=== PATIENT | female | born 1975 | race Caucasian/White ===

== ENCOUNTER 2020-08-23 16:31 | Outpatient (REF) | payer SELFPAY | END 2020-08-23 16:32 | disposition home or self-care (01) | LOC: HO.HOSX 16:31 | PROVIDERS: Visit Provider Orthopaedic Surgery | DX: Z13.89 Encounter for screening for other disorder (principal) ==

== ENCOUNTER 2020-08-24 09:11 | Outpatient (REF) | payer OTHER, SELFPAY | END 2020-08-24 09:12 | disposition home or self-care (01) | LOC: HO.HOSX 09:11 | PROVIDERS: PCP Internal Medicine; Visit Provider Orthopaedic Surgery | DX: M65.4 Radial styloid tenosynovitis [de Quervain] (principal) | CPT/HCPCS: 20550; 99202; J1100 ==

== ENCOUNTER → 2020-09-14 10:17 | Outpatient (BNVA) | payer OTHER, SELFPAY | PROVIDERS: PCP Internal Medicine; Visit Provider Orthopaedic Surgery | DX: M65.4 Radial styloid tenosynovitis [de Quervain] (principal) | CPT/HCPCS: 99212 ==

== ENCOUNTER → 2020-10-12 09:08 | Outpatient (BNVA) | payer OTHER, SELFPAY | PROVIDERS: Visit Provider Orthopaedic Surgery | DX: M65.4 Radial styloid tenosynovitis [de Quervain] (principal) | CPT/HCPCS: 99212 ==

== ENCOUNTER 2020-10-27 12:48 | Day surgery (SDC) | payer OTHER, SELFPAY ==
[2020-10-27 12:55] VITALS: BMI 30.4
[2020-10-27 12:57] VITALS: BP 153/99; PULSE 90; RESP 18; TEMP 36.4; O2SAT 98
--- NOTE | 2020-10-27 14:14 | MHC.SHP ---
Pre-Procedural Eval Section B Chief Complaint: tenosynovitis Allergies: Allergies Allergy/AdvReac Type Severity Reaction Status Date / Time No Known Allergies Allergy Verified 10/12/20 09:17 Plan I have reviewed the history and physical and performed a pertinent physical examination on my patient. No changes have occurred unless specified.
--- NOTE | 2020-10-27 14:14 | W.PM.OPN ---
Operative Note Operative Note Date of Service: 10/27/20 Narrative: Operative Note Preop diagnosis: 1. Right DeQuervain's tenosynovitis Postop diagnosis: 1. Right DeQuervain's tenosynovitis Procedure: 1. Right 1st dorsal compartment release 2. Right abductor pollicis longus tendon tenosynovectomy Surgeon: Bella Nix MD Anesthesia: local block using 1% lidocaine with epinephrine Findings: Thickened 1st dorsal compartment. EPB tendon in a separate sheath from APL Inflamed Milena synovial about APL tendon EBL: Less than 5 mL Tourniquet time: None Specimens: None Complications: None Disposition: Brought to recovery room in stable condition Plan: Follow-up for 7-10 days for wound check and suture removal Indications: The patient is 45 years old, with right DeQuervain's tenosynovitis that has been unresponsive to nonoperative management. The risks and benefits of operative treatment including but not limited to risk of damage to blood vessels, nerves, tendons, infection, persistent pain, persistent symptoms, recurrence or possible need for additional surgery were discussed with the patient and the patient wishes to proceed with surgery. Procedure: Once consent was obtained a local block was performed in the preop area using a combination of 1% lidocaine with epinephrine. The patient was then brought back to the operating suite and placed on the operative table in supine position. A tourniquet was applied to the proximal aspect of the right upper extremity and the limb was prepped and draped in a standard surgical fashion. Once assured that we had a good block, a 1.5 cm longitudinal incision was made centered over the 1st dorsal compartment as it passed over the radial styloid of the right wrist. The incision was made through the skin to the subcutaneous tissues using a #15 blade. Careful dissection was made down to the level of the 1st dorsal compartment using tenotomy scissors, with care being taken to protect the nearby branches of the superficial radial nerve. Once the 1st dorsal compartment was exposed, A longitudinal incision was made in the 1st dorsal compartment 1st using a #15 blade, then using tenotomy scissors under direct visualization. The 1st dorsal compartment was noted to be thickened. She also had some inflamed tenosynovium about the abductor pollicis longus tendon. Carefully performed a T no sign of ectomy excising the inflamed tenosynovium from about APL tendon. This was done using tenotomy scissors. Extensor pollicis brevis tendon was noted to be in a separate sheath. I then released the extensor pollicis brevis tendon by making a longitudinal incision in that sheath using tenotomy scissors. Following our release, we saw smooth gliding abductor pollicis longus and extensor pollicis brevis tendons. No subluxation of the tendons from the groove was seen with passive wrist flexion and extension. Once satisfied with our 1st dorsal compartment release the wound was copiously irrigated with normal saline and hemostasis was obtained with a brief period of local pressure. The subcutaneous layer was closed with some 4-0 Vicryl suture, and the skin edges were reapproximated with some 5.0 nylon suture material. A sterile dressing was applied. The patient appears to have tolerated the procedure well and with no complications. All digits were well vascularized at the conclusion of the case.
[2020-10-27 15:52] VITALS: BP 145/97; PULSE 75; RESP 18; TEMP 37.1; O2SAT 97
== END 2020-10-27 16:02 ==
LOC: HO.SSS 12:48
PROVIDERS: PCP Internal Medicine; Visit Provider Orthopaedic Surgery
PROC: (CPT 25000; principal; 2020-10-27 13:10)
DX: M65.4 Radial styloid tenosynovitis [de Quervain] (principal); F17.210 Nicotine dependence, cigarettes, uncomplicated
CPT/HCPCS: 25000

== ENCOUNTER → 2020-11-07 09:09 | Outpatient (BNVA) | payer OTHER, SELFPAY | PROVIDERS: PCP Internal Medicine; Visit Provider Physician Assistant | DX: M65.4 Radial styloid tenosynovitis [de Quervain] (principal) | CPT/HCPCS: 99212 ==

== ENCOUNTER → 2020-11-16 09:26 | Outpatient (BNVA) | payer OTHER, SELFPAY | PROVIDERS: Visit Provider Orthopaedic Surgery | DX: M65.4 Radial styloid tenosynovitis [de Quervain] (principal) | CPT/HCPCS: 99212 ==

== ENCOUNTER 2022-12-26 14:35 | Outpatient (REF) | payer OTHER, SELFPAY ==
[2022-12-26 19:28] LABS: Alanine Aminotransferase 8 U/L (0-31); Albumin Level 4.2 g/dL (3.5-5.0); Alkaline Phosphatase 68 U/L (39-117); Anion Gap 12 (12-20); Aspartate Amino Transferase 12 U/L (5-31); Bilirubin Total 0.5 mg/dL (0.0-1.0); Blood Urea Nitrogen 5 mg/dL (9-16); Carbon Dioxide 29 mmol/L (22-29); Chloride 108 mmol/L (96-108); Estimated Glomerular Filt Rate > 60; Glucose Random 90 mg/dL (60-115); Magnesium 2.3 mg/dL (1.6-2.6); Potassium 4.3 mmol/L (3.3-5.1); Sodium 145 mmol/L (135-145); Total Protein 6.5 g/dL (6.5-8.0)
== END 2022-12-26 14:36 | disposition home or self-care (01) ==
LOC: HO.MANLDS 14:35
PROVIDERS: Visit Provider Internal Medicine
DX: G24.5 Blepharospasm (principal)
CPT/HCPCS: 36415; 80053; 83735

== ENCOUNTER 2023-02-08 09:20 | Outpatient (REF) | payer OTHER, SELFPAY ==
--- NOTE | ~2023-02-08 | MR_ITS ---
EXAMINATION: MR BRAIN WITHOUT AND WITH CONTRAST CLINICAL INFORMATION: 47-year-old with right-sided facial twitching. COMPARISON: None available. TECHNIQUE: Multiplanar, multisequence MRI of the brain was obtained before and after the intravenous administration of 7 mL Gadavist. FINDINGS: Brain Volume: Within normal limits within the limitations of qualitative assessment. Structural: Incidental 5 mm benign pineal cyst. Just cephalad to this and slightly to the right of midline, there is a 7 mm nonenhancing cystic structure in the cistern of the vellum interpositum which may reflect a small arachnoid cyst, best visualized on image 12 of series 5. Brain and Meninges: DWI sequence demonstrates no restricted diffusion to suggest acute or subacute cerebral ischemia. A few scattered subcentimeter foci of FLAIR/T2 signal hyperintensity are seen in the subcortical white matter of the right frontal lobe and deep parietal white matter on the left with no abnormal enhancement which are nonspecific findings. Otherwise, the brain parenchyma is normal in signal intensity. Gradient refocused imaging demonstrates no abnormal susceptibility-weighted signal loss to suggest hemorrhage, hemosiderin staining or abnormal mineralization. No intracranial mass lesions, extra-axial fluid collections, pathologic intracranial enhancement, significant space-occupying process or mass effect is identified. Ventricles and Subarachnoid Spaces: The ventricular system and subarachnoid spaces are otherwise within normal range; there is no hydrocephalus. Orbital Structures: The visualized orbital structures are grossly unremarkable within the limitations of the study. Vascular: Signal voids are noted in the visualized major intracranial vessels. Osseous Structures, Sinuses/Mastoids, Extracranial Soft Tissues: Unremarkable MR/MR head/brain wo/w con IMPRESSION: 1. A few scattered nonspecific nonenhancing white matter T2 hyperintensities in the cerebral hemispheres are noted. Followup as per clinical indications. 2. No enhancing intracranial mass lesion, pathologic enhancement, significant mass effect, hemorrhage, or hydrocephalus. 3. Incidental 5 mm benign pineal cyst and probable small, subcentimeter arachnoid cyst in the cistern of the vellum interpositum.
== END 2023-02-08 09:21 | disposition home or self-care (01) ==
LOC: HO.MRI 09:20
PROVIDERS: PCP Internal Medicine; Visit Provider Internal Medicine
DX: G24.5 Blepharospasm (principal)
CPT/HCPCS: 70553; A9585

== ENCOUNTER 2023-09-18 09:25 | Outpatient (REF) | payer OTHER, SELFPAY ==
[2023-09-19 18:43] LABS: Ceruloplasmin 27 mg/dL (18-53)
[2023-09-21 16:29] LABS: Copper, plasma 111 mcg/dL (70-175)
== END 2023-09-18 09:26 | disposition home or self-care (01) ==
LOC: HO.LAB 09:25
PROVIDERS: PCP Internal Medicine; Visit Provider Psychiatry & Neurology Neurology
DX: G24.4 Idiopathic orofacial dystonia (principal)
CPT/HCPCS: 36415; 82390; 82525

== ENCOUNTER 2023-09-23 | Outpatient (REF) | payer OTHER, SELFPAY | END 2023-09-23 00:01 | disposition home or self-care (01) | LOC: HO.LNP | PROVIDERS: Visit Provider Psychiatry & Neurology Neurology | DX: Z13.89 Encounter for screening for other disorder (principal) ==

== ENCOUNTER 2025-02-18 07:41 | Emergency (ER) | payer MEDICAID, SELFPAY ==
--- NOTE | ~2025-02-18 | CT_ITS ---
EXAMINATION: CT ABDOMEN PELVIS WITH IV CONTRAST HISTORY: n/v COMPARISON: There are no prior studies for available comparison. TECHNIQUE: CT scan of the abdomen and pelvis was performed following administration of 85 mL Omnipaque 350 using standard departmental protocol. Coronal and sagittal reformatted images were generated and reviewed. Oral contrast material was not administered at the request of the referring physician. This CT exam was performed with one or more of the following dose reduction techniques: automated exposure control, adjustment of the mA and/or kV according to patient size, use of iterative reconstruction technique. DLP: 378 mGy-cm FINDINGS: LOWER CHEST: The visualized lung bases are clear. There is no pleural effusion. CARDIOVASCULATURE: The heart is normal in size. There is no pericardial effusion. LIVER: The liver is normal in size and contour. No liver mass is identified. The hepatic and portal veins are patent. GALLBLADDER / BILE DUCTS: The gallbladder is unremarkable. There is no intra or extrahepatic biliary ductal dilatation. SPLEEN: The spleen is normal in size. No focal splenic lesion is identified. PANCREAS: The pancreas is unremarkable in appearance. ADRENAL GLANDS: Within normal limits. KIDNEYS/RETROPERITONEUM: No renal calculi are identified. There is no hydronephrosis. No renal masses are identified. LYMPH NODES: No abdominal or pelvic lymphadenopathy. VASCULATURE: The abdominal aorta is normal in caliber. MESENTERY/PERITONEUM: No free fluid. No masses. There is no free intraperitoneal gas. STOMACH: There is a small hiatal hernia. The remainder of the stomach is collapsed. SMALL BOWEL: The small bowel is normal in caliber. COLON: The colon is unremarkable. APPENDIX: Normal. URINARY BLADDER/PELVIC ORGANS: The urinary bladder is markedly distended, but otherwise unremarkable in appearance. The uterus is unremarkable. BONES / SOFT TISSUES: No suspicious bony or soft tissue abnormalities. CT/CT abdomen pelvis w IV con IMPRESSION: 1. Small hiatal hernia. 2. Markedly distended urinary bladder. Electronically signed by: Patrick Moncada MD 02/18/2025 09:55 AM EDT
[2025-02-18 07:50] VITALS: BP 169/96; BP 172/98; PULSE 73; PULSE 78; RESP 16; O2SAT 99; BMI 22.3
--- NOTE | 2025-02-18 08:10 | ED_ITS ---
HPI - Abdominal Pain General Chief Complaint: Abdominal Pain Stated Complaint: ABD PAIN, VOMITING PER EMS Time Seen by Provider: 02/18/25 07:49 History of Present Illness HPI narrative: Patient is a 49-year-old female presents today with having extreme nausea vomiting. The symptoms started just prior to arrival. Patient use marijuana on a daily basis. Denies any other recreational drug use. History of having a tubal ligation many years ago. Unable to tolerate p.o.. Extreme nausea. Had a history of nausea vomiting in the past. Related Data Home Medications ?Medication ?Instructions ?Recorded ?Confirmed bupropion HCl 150 mg tablet,12 hr 150 mg PO DAILY 02/06 sustained-release sertraline 100 mg tablet 100 mg PO DAILY 08/24/20 Previous Rx's ?Medication ?Instructions ?Recorded hydrocodone 5 mg-acetaminophen 325 1 tab PO Q4-6H PRN pain #5 tabs 10/27/20 mg tablet cephalexin 500 mg capsule 500 mg PO Q8H 7 days #21 cap s 02/18/25 ondansetron 4 mg disintegrating 4 mg PO TID PRN nausea and 02/18/25 tablet vomiting 5 days #10 tabs Allergies Allergy/AdvReac Type Severity Reaction Status Date / Time No Known Allergies Allergy Verified 02/18/25 07:54 Review of Systems Review of Systems Positive nausea vomiting no diarrhea PMFSH Past Medical History Attestation statement: The following information was validated with the patient. Medical History Anxiety Depression Family History Family History Mother No problems noted. Father No problems noted. 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 Extreme nausea vomiting Eyes: Pupils equal, round and reactive to light. ENT: Pharynx normal. Neck: Normal inspection. Neck supple. No lymph nodes noted. No crepitus CVS: Normal heart rate and rhythm. Pulses normal. Normal S1 and S2 Respiratory: No respiratory distress. Breath sounds normal. No Wheezing. No rales Abdomen: Soft and nontender. No rigidity. No distention. good BS x4 Skin: Skin warm and dry. Normal skin color. Normal skin turgor. Extremities: No lower extremity edema. Neurovascular intact to all extremities. No Lacerations. No Rash Neuro: No motor deficit. No sensory deficit. Moving all extermities. No slurred speech Medical Decision Making Medical Decision Making [facility] Narrative: Patient's electrolytes showed a potassium of 2.8 with a normal magnesium. Hydrated patient with oral potassium and IV potassium. Has a history of marijuana use. CC of vomiting. CT scan of the abdomen showed no obstruction no abscess no perforation it did show an enlarged bladder patient refused a bladder scan. His her urine was positive for infection. Will give antibiotics. Patient refused any further study. Including repeat electrolytes. Understands the risk of retention understand the risk of infection. It is leaving against medical advice. Differential Diagnosis Differential Diagnoses: The differential diagnosis associated with the presentation includes Small-bowel obstruction, UTI, appendicitis Admission/Observation Consideration of admission/observation: Escalation of care including admission/observation considered Lab Data [facility] Lab Attestation statement: I reviewed the patient's lab results. 02/18/25 08:08 02/18/25 08:08 Labs: Lab Results 02/18/25 02/18/25 Range/Units 08:08 09:39 WBC 8.6 (4.8-10.8) X10*3/uL RBC 4.86 (4.20-5.50) X10*6/uL Hgb 13.3 (12.0-16.0) g/dl Hct 39.1 (37.0-47.0) % MCV 80.5 (80.0-98.0) fL MCH 27.4 (27.0-33.0) pg MCHC 34.0 (31.0-35.0) g/dl RDW 13.0 (11.0-16.0) % Plt Count 260 (160-400) X10*3/uL MPV 10.4 (9.4-12.3) fL Immature Gran % (Auto) 0.2 (0.0-0.4) % Neut % (Auto) 68.6 (45-73) % Lymph % (Auto) 25.4 (20-40) % Powell % (Auto) 4.7 (2-11) % Eos % (Auto) 0.5 (0-4) % Baso % (Auto) 0.6 (0-2) % Lymph # (Auto) 2.2 (1.2-4.9) X10*3/uL Powell # (Auto) 0.4 (0.1-1.2) X10*3/uL Eos # (Auto) 0.0 (0.0-0.4) X10*3/uL Baso # (Auto) 0.1 (0.0-0.2) X10*3/uL Abs Immat Gran (auto) 0.02 (0.00-0.03) X10*3/uL Absolute Neuts (auto) 5.9 (2.0-8.3) x10*3/uL Absolute Nucleated RBC 0.000 (0.0-0.012) X10*3/uL Nucleated RBC % (auto) 0.0 (0.0-0.2) /100WBC Sodium 139 (135-145) mmol/L Potassium 2.8 L* (3.3-5.1) mmol/L Chloride 104 (96-108) mmol/L Carbon Dioxide 20 L (22-29) mmol/L Anion Gap 18 (12-20) BUN 6 L (9-16) mg/dL Creatinine 0.85 (0.5-1.4) mg/dL Estim Creat Clear Calc 69.9 Estimated GFR > 60 Random Glucose 176 H (60-115) mg/dL Calcium 9.2 (8.4-10.2) mg/dL Magnesium 2.0 (1.6-2.6) mg/dL Total Bilirubin 0.5 (0.0-1.0) mg/dL AST 21 (5-31) U/L ALT 9 (0-31) U/L Alkaline Phosphatase 52 (39-117) U/L Total Protein 7.0 (6.5-8.0) g/dL Albumin 4.7 (3.5-5.0) g/dL Lipase 22 (8-78) U/L Beta HCG, Quant 6 mIU/mL Urine Color Yellow Urine Appearance Clear Urine pH 8.0 (5.0-9.0) Ur Specific [place] <= 1.005 (1.005-1.025) Urine Protein Negative (Neg-Trace) mg/dL Urine Glucose (UA) Negative (Negative) mg/dL Urine Ketones Trace (Negative) mg/dL Urine Blood Negative (Negative) Urine Nitrite Positive H (Negative) Ur Leukocyte Esterase Small (1+) H (Negative) Urine RBC 0-2 (0-2) /HPF Urine WBC 0-5 (0-5) /HPF Ur Squamous Epith Cells 6-10 (0-2) /HPF Urine Bacteria 3+ (None Seen) Hyaline Casts 0-2 (0-2) /LPF Ethyl Alcohol 12 mg/dL Independent Interpretation I performed an independent interpretation of an: CT Scan (No overt obstruction noted) Radiology Impression Discussion of test interpretation with radiology: I have reviewed the radiologist's reading. External Record Review External record reviewed: Office record Social Determinants Patient?s care significantly limited by Social Determinants of Health including: Alcoholism and drug addiction in family and Problems related to primary support group Medications Administered Discontinued Medications Generic Name Dose Route Start Last Admin Trade Name Freq PRN Reason Stop Dose Admin Diphenhydramine HCl 50 mg 02/18/25 08:07 02/18/25 08:30 Diphenhydramine Hcl 50 Mg/Ml Vial IVPUSH 02/18/25 08:08 50 mg ONCE ONE Administration Droperidol 0.625 mg 02/18/25 08:08 02/18/25 08:30 Droperidol 5 Mg/2 Ml Vial IVPUSH 02/18/25 08:09 0.625 mg ONCE ONE Administration Sodium Chloride 1,000 mls @ 999 mls/hr 02/18/25 08:15 02/18/25 11:11 Ns IV 02/18/25 09:15 Infused .Q1H1M LOU Infusion Sodium Chloride 1,000 mls @ 999 mls/hr 02/18/25 08:15 07/03/25 10:07 Ns IV 02/18/25 09:15 Infused .Q1H1M LOU Infusion Potassium Chloride 10 meq in 100 mls @ 100 mls/hr 02/18/25 08:45 02/18/25 12:16 Potassium Chloride/H20 IV 02/18/25 12:44 Not Given Q1H LOU Iohexol 100 ml 02/18/25 09:26 02/18/25 09:26 Iohexol 350 Mg/Ml 100 Ml Infus..Btl IV 02/18/25 09:27 85 ml ONCE ONE Administration Potassium Chloride 40 meq 02/18/25 08:42 02/18/25 08:57 Potassium Chloride Packet 20 Meq Packet PO 02/18/25 08:43 40 meq ONCE ONE Administration Discharge Plan Discharge Clinical Impression: Nausea & vomiting Patient Disposition: Left Against Medical Advice Instructions: Acute Nausea and Vomiting (DC) Additional Instructions: Bladder is full on the CT scan. You are leaving against medical advice. Please come back if you can not urinate Prescriptions: New cephalexin 500 mg capsule 500 mg PO Q8H 7 Days Qty: 21 0RF ondansetron 4 mg tablet,disintegrating 4 mg PO TID PRN (Reason: nausea and vomiting) 5 Days Qty: 10 0RF No Action hydrocodone-acetaminophen 5-325 mg tablet 1 tab PO Q4-6H PRN (Reason: pain) Qty: 5 0RF Referrals: Baldomero Edwards MD [Primary Care Provider, Medical] - 3 days Stand Alone Forms: Against Medical Advice Print Language: [place]
[2025-02-18 08:12] LABS: MANUAL DIFF FLAG NO
[2025-02-18 08:17] LABS: Hematocrit 39.1 % (37.0-47.0); Hemoglobin 13.3 g/dl (12.0-16.0); Imm Gran Abs Auto 0.02 X10*3/uL (0.00-0.03); Imm Gran Pct Auto 0.2 % (0.0-0.4); Lymphocytes Absolute Auto 2.2 X10*3/uL (1.2-4.9); Mean Corpuscular HGB Conc 34.0 g/dl (31.0-35.0); Mean Corpuscular Hemoglobin 27.4 pg (27.0-33.0); Mean Corpuscular Volume 80.5 fL (80.0-98.0); NRBC Abs Auto 0.000 X10*3/uL (0.0-0.012); NRBC Pct Auto 0.0 /100WBC (0.0-0.2); Platelet Count 260 X10*3/uL (160-400); Red Blood Count 4.86 X10*6/uL (4.20-5.50); White Blood Count 8.6 X10*3/uL (4.8-10.8)
[2025-02-18 08:42] LABS: Alanine Aminotransferase 9 U/L (0-31); Albumin Level 4.7 g/dL (3.5-5.0); Alkaline Phosphatase 52 U/L (39-117); Anion Gap 18 (12-20); Aspartate Amino Transferase 21 U/L (5-31); Blood Urea Nitrogen 6 mg/dL (9-16); Calcium 9.2 mg/dL (8.4-10.2); Carbon Dioxide 20 mmol/L (22-29); Chloride 104 mmol/L (96-108); Creatinine Clr Calc Pharmacy 69.9; Estimated Glomerular Filt Rate > 60; Lipase 22 U/L (8-78); Magnesium 2.0 mg/dL (1.6-2.6); Potassium 2.8 mmol/L (3.3-5.1); Sodium 139 mmol/L (135-145); Total Protein 7.0 g/dL (6.5-8.0)
[2025-02-18] MEDS: Potassium Chloride Packet 20 MEQ PACKET 40 MEQ PO (08:57)
[2025-02-18] MEDS: Potassium Chloride/H20 10 MEQ/100 ML PIGGYBACK 100 MEQ IV ×3 (08:57→11:10)
[2025-02-18 08:58] VITALS: BP 143/67; PULSE 89; RESP 18; TEMP 36.4; O2SAT 99
[2025-02-18] MEDS: iohexoL 350 MG/ML 100 ML INFUS..BTL IV (09:26)
[2025-02-18 09:50] LABS: Appearance Urine Clear; Glucose Urine UA Negative (Negative); PH 8.0 (5.0-9.0); Specific Gravity - Urine <= 1.005 (1.005-1.025); UMIC TRIGGER UACC YES
--- OUTSIDE RECORDS SUMMARY | 2025-02-18 10:05 | XMS_ITS | Clinical Summary ---
Author Organization [employer] Address [address] [place] [address] Care Team Providers Care Room Worker Name Role Phone Unavailable Primary Care Provider Unavailabl e Allergies No known active allergies Medications buPROPion SR (Wellbutrin SR) 100 MG 12 hr tablet Orally Active sertraline (Zoloft) 100 MG tablet Take 100 mg by mouth in the morning. 08/28/2022 Active Active Problems No known active problems Social History Tobacco Use Types Packs/Day Years Used Date Smoking Tobacco: Every Day Cigarettes Smokeless Tobacco: Never Tobacco Cessation:Ready to Q uit: Not Asked; Counseling Given: Not Answered Comments Unknown Sex and Gender Information Value Date Recorded Sex Assigned at Female 06/18/2022 10:23 AM EDT Legal Sex Female 10:23 AM EDT Gender Identity Female 06/18/2022 10:23 AM EDT Sexual Orientation Straight 06/18/2022 10 :23 AM EDT Last Filed Vital Signs Vital Sign Reading Time Taken Comments Blood Pressure 140/96 10/03/2022 11:19 AM EST Pulse 85 10/03/2022 11:19 AM EST Temperature - - Respiratory Rate - - Oxygen Saturation - - Inhaled Oxygen Concentration - - Weight - - Height - - Body Mass Index - - Plan of Treatment Health Maintenance Due Date Last Done Comments CT Colonography 1976 Colonoscopy 1976 Colorectal Cancer Screening 1976 Dental X-Ray: Full Mouth 1976 Depression Screening 1976 FIT DNA/Cologuard 1976 FIT 1976 FOBT 1976 HIV Screening 1976 SDOH Screening 1976 Sigmoidoscopy 1976 Disability Screening 1976 Alcohol/Substance Use Screening 1988 Family Planning (PISQ) 1991 Hepatitis C Screening 1994 Hepatitis B Vaccines (1 of 3 - 19+ 3-dose series) 1995 Pneumococcal Vaccine: Pediatrics (0 to 5 Years) and At-Risk Patients (6 to 49) Years (1 of 2 - PCV) 1995 Pap Smear 1997 Cervical Cancer Screening 2006 HPV/Cotest 2006 DTaP/Tdap/Td Vaccines (1 - Tdap) 03/02/2017 03/01/2017, 02/24/2017 Mammogram 11/11/2020 11/11/2018 Dental Oral Exam 03/20/2023 09/19/2022 Dental Prophylaxis 03/20/2023 09/19/2022 Dental X-Ray: Bitewings 09/20/2023 09/19/2022 COVID-19 Vaccine (1 - 2023-2 5 season) 2024 Tobacco Screening 05/08/2024 05/08/2023 Influenza Vaccine (Season Ended) 2025 Zoster Vaccines (1 of 2) 2026 RSV Patients and Patients Aged 60 years or older (1 - 1-dose 75+ series) 2051 HIB Vaccines Aged Out No longer eligi ble based on patient's age to complete this topic HPV Vaccines Aged Out No longer eligi ble based on patient's age to complete this topic Hepatitis A Vaccines Aged Out No long er eligible based on patient's age to complete this topic IPV Vaccines Aged Out No longer eligi ble based on patient's age to complete this topic Meningococcal B Vaccine Aged Out No l onger eligible based on patient's age to complete this topic Meningococcal Vaccine Aged Out No [place] eligible based on patient's age to complete this topic RSV under 20 months Aged Out No longe r eligible based on patient's age to complete this topic Rotavirus Vaccines Aged Out No longer eligible based on patient's age to complete this topic Procedures Procedure Name Priority Date/Time Associated Diagnosis Comments PROPHYLAXIS - ADULT Routine 09/19/2022 9 :00 AM EST Encounter for dental examination BITEWINGS - 4 RADIOGRAPHIC IMAGES Routine 09/19/2022 9:00 AM EST Encounter for dental examination PERIODIC ORAL EVALUATION - ESTABLISHED PATIENT Routine 09/19/2022 8:45 AM EST from Last 3 Months or Most Recently Relevant to Health Maintenance Insurance DENTAL - [facility] PARTIAL (MEDICAID)
--- OUTSIDE RECORDS SUMMARY | 2025-02-18 10:05 | XMS_ITS | Data Portability ---
Author Organization [facility], Telehealth Patient Home Address [address] [place] [address] Assessment Encounter Date Assessment Date Assessment LastModified by Organization Details LastModified Time 08/02/2021 08/02/2021 [id number] [place] [id number] (PHYSICIAN NEONATOLOGY) : RYAN LOW MUST MEET 2 OF 3 ELEMENTS: PROBLEMS, DATA OR RISK ELEMENT 1: PROBLEMS ADDRESSED (LOW): 2 OR MORE SELF-LIMITED OR MINOR PROBLEMS OR 1 STABLE CHRONIC ILLNESS OR 1 ACUTE UNCOMPLICATED ILLNESS OR INJURY ELEMENT 2: DATA TO BE REVISED AND ANALYZED (LOW) MUST MEET 1 OF 2 CATEGORIES: CATEGORY 1. REVIEW OF PRIOR EXTERNAL NOTES/RESULTS, ORDERING OF TEST(S) CATEGORY 2. ASSESSMENT REQUIRING INDEPENDENT HISTORIAN(S) INCLUDE WHO THE HISTORIAN IS AND RELATION TO PT AND WHY PT IS UNABLE TO GIVE COMPLETE HISTORY ELEMENT 3: RISK (LOW) RISK OF COMPLICATIONS AND/OR MORBIDITY OR MORTALITY OF PATIENT MANAGEMENT PROVIDER MUST THOROUGHLY DOCUMENT ALL OF THE ELEMENTS COVERED Not available 08/02/2021 12:44:05 02/26/2023 02/26/2023 [id number] [place] [id number] (PHYSICIAN NEONATOLOGY) : RYAN LOW MUST MEET 2 OF 3 ELEMENTS: PROBLEMS, DATA OR RISK ELEMENT 1: PROBLEMS ADDRESSED (LOW): 2 OR MORE SELF-LIMITED OR MINOR PROBLEMS OR 1 STABLE CHRONIC ILLNESS OR 1 ACUTE UNCOMPLICATED ILLNESS OR INJURY ELEMENT 2: DATA TO BE REVISED AND ANALYZED (LOW) MUST MEET 1 OF 2 CATEGORIES: CATEGORY 1. REVIEW OF PRIOR EXTERNAL NOTES/RESULTS, ORDERING OF TEST(S) CATEGORY 2. ASSESSMENT REQUIRING INDEPENDENT HISTORIAN(S) INCLUDE WHO THE HISTORIAN IS AND RELATION TO PT AND WHY PT IS UNABLE TO GIVE COMPLETE HISTORY ELEMENT 3: RISK (LOW) RISK OF COMPLICATIONS AND/OR MORBIDITY OR MORTALITY OF PATIENT MANAGEMENT PROVIDER MUST THOROUGHLY DOCUMENT ALL OF THE ELEMENTS COVERED Not available 02/26/2023 09:08:56 10/11/2023 10/11/2023 [id number] [place] [id number] (PHYSICIAN NEONATOLOGY) : MDM LOW MUST MEET 2 OF 3 ELEMENTS: PROBLEMS, DATA OR RISK ELEMENT 1: PROBLEMS ADDRESSED (LOW): 2 OR MORE SELF-LIMITED OR MINOR PROBLEMS OR 1 STABLE CHRONIC ILLNESS OR 1 ACUTE UNCOMPLICATED ILLNESS OR INJURY ELEMENT 2: DATA TO BE REVISED AND ANALYZED (LOW) MUST MEET 1 OF 2 CATEGORIES: CATEGORY 1. REVIEW OF PRIOR EXTERNAL NOTES/RESULTS, ORDERING OF TEST(S) CATEGORY 2. ASSESSMENT REQUIRING INDEPENDENT HISTORIAN(S) INCLUDE WHO THE HISTORIAN IS AND RELATION TO PT AND WHY PT IS UNABLE TO GIVE COMPLETE HISTORY ELEMENT 3: RISK (LOW) RISK OF COMPLICATIONS AND/OR MORBIDITY OR MORTALITY OF PATIENT MANAGEMENT PROVIDER MUST THOROUGHLY DOCUMENT ALL OF THE ELEMENTS COVERED Not available 10/11/2023 16:52:35 02/12/2025 02/12/2025 Patient presented for medication refill. Patient tolerating medication well at current dose without adverse effects. Refilled as below. Discussed plan with patient, who expressed understanding. Follow up as noted below. Not available 02/12/2025 12:10:32 Plan of Treatment Reminders Order Date Submit Date Provider Last Modified By Organization Details Last Modified Time Details Appointments None recorded. Lab CMP, serum or plasma 2022 023 ADAN Not available 12:06:24 magnesium, serum or plasma 2022 023 [email or web address] Not available 14:31:34 Referral None recorded. Procedures None recorded. Surgeries None recorded. Imaging MR, angiogram, head, w/o contrast 2024 025 [facility] Central Scheduling, [address] [facility], [place], [address], 5 15:06:29 MRI, brain, w/o contrast 2022 023 [facility] Central Scheduling, [address] [place], [address], 3 08:39:28 Medication Orders sertraline 100 mg tablet 2024 025 [facility], [address] [place], [address], 5 12:13:43 bupropion HCl SR 150 mg tablet,12 hr sustained- release 2024 025 [facility], [address] [place], [address], 5 12:13:43 Valium 5 mg tablet 2022 023 [facility], [address] [place], [address], 5 12:12:06 baclofen 10 mg tablet 2022 023 [facility], [facility] [place], [address], 3 14:23:17 Patient TargetsNo targets recorded. Patient InstructionsNo instructions recorded. Reason for Referral None Reported. Results Created Date Observation Date Name Description Value Unit Range Abnormal Flag Note LastModifiedBy Organization Detail LastModifiedTime 02/14/2002/08/2023 MRI, brain , w/wo contr ast No observ ation record ed. [email or web address] [place] [address] (Medical Records) [address] [place], [address], 03/12/2023 13:52:46 02/19/2002/18/2025 imagi ng/di agnos tic resul t No observ ation record ed. [facility] (Medical Records) [address] [place], [address], 02/18/2025 09:59:16 Result Notes None recorded. 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 Procedures Surgical History Date Name Laterality Status Provider Name and Address Organization Details Recorded Time 10/22/19 19 Date of Last Pap Smear completed Cesilia WANDER [address], [address], [facility] 10/22/2018 10:51:03 ligation of bilateral fallopian tubes completed [facility] [address], [address], [facility] 10/22/2018 10:48:58 extraction of wisdom tooth completed [facility] [address], [address], [facility] 10/22/2018 10:49:08 Imaging Results None recorded. Procedure Notes None recorded. Medical Equipment None Reported. Allergies No known drug allergies Medications Name Sig Start Date Stop Date Status Note LastModified by Organization Details LastModified Time amoxicillin 500 mg capsule TAKE ONE CAPSULE BY MOUTH EVERY 8 HOURS 12/26 completed Not Available Not Available Not Available bupropion HCl SR 150 mg tablet,12 hr sustained-r elease TAKE ONE TABLET BY MOUTH EVERY DAY 2024 active Not Available Not Available Not Avai lable prednisone 10 mg tablet 40 mg x 3 days, 30 x 3 days, 20 mg x 3 days, 10 mg x 3 days 06/28 completed Not Available Not Available Not Available clindamycin HCl 300 mg capsule Take 1 capsule twice a day by oral route for 7 days. 12/26 completed Not Available Not Available Not Available azithromyci n 250 mg tablet TAKE 2 TABLETS (500 MG) BY ORAL ROUTE ONCE DAILY FOR 1 DAY THEN 1 TABLET (250 MG) BY ORAL ROUTE ONCE DAILY FOR 4 DAYS 11/30 completed Not Available Not Available Not Available ibuprofen 800 mg tablet TAKE ONE TABLET BY MOUTH THREE TIMES A DAY WITH FOOD active Not Available Not Available No t Available hydrocodone 5 mg-acetamin ophen 325 mg tablet TAKE ONE TABLET BY MOUTH EVERY 4 TO 6 HOURS NEEDED FOR PAIN 12/26 completed Not Available Not Available Not Available sertraline 100 mg tablet TAKE ONE TABLET BY MOUTH EVERY DAY NEEDS APPT FOR FULL MONTH SUPPLY.. CALL OFFICE 2024 active Not Available Not Available Not Avai lable acetaminoph en 500 mg tablet TAKE ONE TABLET BY MOUTH EVERY 6 HOURS NEEDED active Not Available Not Available No t Available acetaminoph en ER 650 mg tablet,exte nded release TAKE ONE TABLET BY MOUTH EVERY 8 HOURS NEEDED FOR MILD PAIN FOR UP TO 10 DAYS. DO NOT CRUSH, CHEW OR SPLIT. active Not Available Not Available No t Available lorazepam 0.5 mg tablet TAKE ONE TABLET BY MOUTH EVERY DAY NEEDED 02/12 completed Not Available Not Available Not Available baclofen 10 mg tablet TAKE ONE TABLET BY MOUTH THREE TIMES A DAY active Not Available Not Available No t Available cephalexin 500 mg capsule Take 1 capsule 3 times a day by oral route for 10 days. 06/28 completed Not Available Not Available Not Available gabapentin 300 mg capsule 10/28 completed Not Available Not Available Not Available diclofenac sodium 75 mg tablet,josep yed release TAKE ONE TABLET BY MOUTH TWICE A DAY WITH MEALS 12/26 completed Not Available Not Available Not Available ibuprofen 600 mg tablet TAKE ONE TABLET BY MOUTH EVERY 8 HOURS NEEDED FOR MILD TO MODERATE PAIN.FOR UP TO 10 DAYS active Not Available Not Available No t Available trihexyphen idyl 2 mg tablet TAKE ONE TABLET BY MOUTH THREE TIMES A DAY active Not Available Not Available No t Available diazepam 5 mg tablet TAKE TWO TABLETS BY MOUTH EVERY DAY DIRECTED FOR 4 DAYS 02/12 completed Not Available Not Available Not Available amoxicillin 500 mg-potassiu m clavulanate 125 mg tablet TAKE ONE TABLET BY MOUTH THREE TIMES A DAY FOR 10 DAYS 12/26 completed Not Available Not Available Not Available medroxyprog esterone 150 mg/mL intramuscul ar syringe INJECT ONE ML (150 MG) INTO MUSCLE EVERY 3 MONTHS 12/26 completed Not Available Not Available Not Available Iliana 0.35 mg tablet 06/28 completed Not Available Not Available Not Available chlorhexidi ne gluconate 0.12 % mouthwash SWISH WITH 15ML BY MOUTH TWO TIMES A DAY FOR 30 SECONDS THEN SPIT OUT active Not Available Not Available No t Available bupropion HCl 150 mg tablet,12 hr sustained-r elease(smok ing deterrent) TAKE ONE TABLET BY MOUTH EVERY DAY 11/15 completed Not Available Not Available Not Available Vitals Date Recorded Body height Body mass index (BMI) Body weight Heart rate Oxygen saturation Oxygen saturation in Arterial blood by Pulse oximetry Systolic And Diastolic Provider Name and Address Organization Details Last Updated DateTime 3 152.4 cm 30.3 kg/m2 18417.8 2 g 95 /min 97 % 97 % 140/80 mm[Hg] Acacia Jackson [facility] 3 13:50:05 Date Recorded Body height Body mass index (BMI) Body weight Heart rate Oxygen saturation Oxygen saturation in Arterial blood by Pulse oximetry Systolic And Diastolic Provider Name and Address Organization Details Last Updated DateTime 5 165.1 cm 25.8 kg/m2 76169.8 2 g 98 /min 88 % 88 % 128/78 mm[Hg] Acacia Jackson [facility] 5 11:56:43 Social History Question Answer Notes LastModified by Organizat ion Details LastModified Time Tobacco Smoking Status Current Every Day Smoker Not Available [facility] 06/21/2020 03:36:24 What Was The Date Of Your Most Recent Tobacco Screening? 02/12/2025 [email or web address] Information not available 02/12/2025 Sex: Unknown Functional Status Question Answer Note LastModified by Organization D etails LastModified Time Do you or have you ever used any other forms of tobacco or nicotine? No [email or web address] Information not available 12/26/2022 Mental Status None recorded. Family History Relationship Description Onset Age of this Age Resolved Age Notes LastModified by Organization Details LastModified Time Mother Diabetes mellitus [email or web address] Not available 10/22 10:49:20 Medical History No medical history recorded. Gynecological History Statement/Question Response Menses Monthly Y Date of Last Pap Smear 10/21/2018 Flow [facility] Age at Menarche 14 Frequency of Cycle (Q days) 3 Obstetrics History GPAL:G 4 P 2 0 2 2 Type Value Full Term 2 Induced 2 Living 2 Total 4 Immunizations Vaccine Type Date Status Note Provider Nam e and Address Organization Details Recorded Time tetanus toxoid, unspecified formulation 03/01/2017 completed Elida ornelas [facility] 10/27/2018 16:45:59 Past Encounters Encounter ID Performer Location Encounter Start Date Encounter Closed Date Diagnosis/Indication Diagnosis SNOMED-CT Code Diagnosis ICD10 Code Diagnosis Note [id number] Baldomero Edwards [facility] [address] [facility],[place] [address] 10/28/2018 14:17:18 10/28/2018 14:33:04 Acute sinusitis 86525191 J01.90 Tobacco user 826867007 Z 72.0 Anxiety 91728942 F41.9 [id number] Baldomero Edwards [facility] [address] [facility],[place] [address] 11/10/2019 15:57:53 11/16/2019 16:41:18 Pneumonia 852735837 J18.9 Patient has been having constant dry cough, nasal congestion , post-nasal drip for the past two weeks She has a hx of smoking She is no longer having fevers and her other symptoms have been improving gradually She has not been exposed to anyone with COVID-19 and states she has kept herself self-quara ntined Patient most likely having asthma/CV RN D exacerbati on in the setting of a pna will treat patient with Z-juan and a prednisone taper will check lungs with XR If the patient's symptoms worsen and if she starts having fevers again or increased sob the patient is advised to call us so we may instruct her to go to the hospital for possible testing/tr eatment Pt advised to stay quarantine d until all symptoms resolve Patient understand s this and agrees to this plan Tobacco user 637392509 Z 72.0 as above [id number] Baldomero Edwards [facility] [address] [place] [address], [place] [address] 12/01/2019 08:52:42 12/01/2019 09:43:57 Adult health examination 371718167 Z00.01 Active or passive immunization 548147388 Z23 Cellulitis 684522189 L03 .90 from contact dermatitis Contact dermatitis 09099 004 L25.9 Anxiety 92811263 F41.9 Depressive disorder 3548 9007 F32.9 Dysmenorrhea 803779543 N 94.6 [id number] Baldomero Edwards [facility] [address] [facility],[place] [address] 06/28/2020 15:28:42 06/28/2020 16:02:25 Pain of right wrist 0127291263 12112 M25.531 need XRs will fu afterwards will use thumb spica brace in the meantime [id number] Baldomero Edwards [facility] [address] [facility],[place] [address] 07/06/2020 13:50:20 07/06/2020 16:57:42 Pain of right wrist 5603704416 98398 M25.531 need XRs again will fu afterwards will go get new brace in meantime with order for proper fit [id number] Baldomero Edwards [facility] [address] [facility],[place] [address] 08/02/2021 08:28:32 08/02/2021 14:56:40 Anxiety 51474310 F41.9 stable and is not having any issues [id number] Baldomero Edwards [facility] [address],[place] [address] 12/26/2022 13:43:34 12/26/2022 14:38:46 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 [id number] Baldomero Edwards [facility] [address] [facility] [address],[place] [address] 02/26/2023 07:56:59 02/26/2023 10:31:30 Blepharospasm of right eyelid 3367488567 0380378 G24.5 see below 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 Health Concerns Section Related Observation LastModified by Organization Detai ls LastModified Time None Recorded Concern Status LastModified by Organization Details LastModified Time None Recorded Advance Directives Directive None Recorded Payers Insurance Date Sequence Insurance Name Policy Number Policy Oreilly Covered Member ID Oreilly Member ID Guarantor Name 02/12/2025 1 [employer] (O) [id number] Luz Duran [id number] Luz Duran 02/16/2025 1 [place] [facility] PLAN Luz Duran [id number] Luz Duran Notes Date Note Type Note Provider Name a nd Address Organization Details Recorded Time 08/02/2021 text/html patient is evaluated via tele/video assessment per patient consentduring current pandemichas had a recent URI covid negativemeds are fine no change needed Baldomero Edwards DO [address] [place] [address], [address], [facility] 08/02/2021 13:35:54 12/26/2022 text/html here for c/o r eyelid twitching and relates that she had it a year ago and has been gradually getting worse does use computer a lot Baldomero Edwards DO [address] [place], [address], [facility] 12/26/2022 14:24:42 02/26/2023 text/html patient is evaluated via tele/video assessment per patient consentduring current pandemic still having a great deal of eye twitching on right eyelid extending down to corner of her mouth so much that she is talking diff because of itreviewed mri w pt which is neg Baldomero Edwards DO [address] [place], [address], [facility] 02/26/2023 10:16:13 10/11/2023 text/html patient is evaluated via tele/video assessment per patient consentduring current pandemic 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 and relates that she is very scared and upset because it will get worsetold no cure and will progress Baldomero Edwards, [address] [place], [address], [facility] 10/11/2023 17:06:28 02/12/2025 text/html relates her symptoms are getting bad againhas a signif droop of right facial musclesspeech is getting affectedalso eyelid spasm is coming back also relates that she is getting stupid forgetting things, getting almost dyslexic forgetting numbers hard time seeing at night has appt with dr tamara Edwards DO [address] [place], [address], [facility] 02/12/2025 12:17:52 OBGyn Episode No OBEpisode recorded.
[2025-02-18 10:12] LABS: UACC Culture Trigger YES
--- NOTE | 2025-02-18 12:16 | PC.NURSE ---
Pt refused last bag of potassium- pt received 3/4 bags. Salvador aware, will repeat electrolytes.
--- NOTE | 2025-02-18 12:53 | PC.NURSE ---
Pt agitated/irritated with staff- requesting to leave. Salvador made aware, pt to leave AMA. Pt understands risks of leaving AMA. IV line removed, refused d/c vitals.
[2025-02-18 13:39] VITALS: BP 143/67; PULSE 89; RESP 18; TEMP 36.4; O2SAT 99
== END 2025-02-18 12:40 | disposition left against medical advice (07) ==
PROVIDERS: Emergency Provider Emergency Medicine Emergency Medical Services; PCP Internal Medicine
DX: R11.2 Nausea with vomiting, unspecified (principal); R10.2 Pelvic and perineal pain; Z51.81 Encounter for therapeutic drug level monitoring; Z79.899 Other long term (current) drug therapy
CPT/HCPCS: 36415; 74177; 80053; 80307; 81001; 83690; 83735; 84702; 85025; 87086; 87088; 87186; 96361; 96374; 96375; 99285; J1200; J1790; J3480; Q9967

== ENCOUNTER → 2025-02-18 08:06 | Outpatient (BNV) | payer OTHER, SELFPAY | PROVIDERS: Emergency Provider Emergency Medicine Emergency Medical Services; PCP Internal Medicine; Visit Provider Radiology Diagnostic Radiology | DX: K44.9 Diaphragmatic hernia without obstruction or gangrene (principal); N32.89 Other specified disorders of bladder | CPT/HCPCS: 74177 ==

== ENCOUNTER → 2025-03-04 10:30 | Outpatient (BNV) | payer MEDICAID, SELFPAY | PROVIDERS: PCP Internal Medicine; Visit Provider Radiology Diagnostic Radiology | DX: D35.4 Benign neoplasm of pineal gland (principal) | CPT/HCPCS: 70551 ==

== ENCOUNTER 2025-03-04 10:45 | Outpatient (REF) | payer MEDICAID, SELFPAY ==
--- NOTE | ~2025-03-04 | MR_ITS ---
EXAMINATION: MR BRAIN WITHOUT CONTRAST CLINICAL INFORMATION: Idiopathic orofacial dystonia. COMPARISON: 02/08/2023. TECHNIQUE: MRI of the brain was obtained using routine sequences without contrast. Examination performed on a 1.5 Destinee Siemens high-field unit. FINDINGS: There is no diffusion restriction. There is no intracranial hemorrhage, acute infarction, mass effect, or edema. Ventricles, sulci, and cisterns are normal in size and configuration for patient age. No shift of midline. No abnormal hemosiderin deposition is identified. There are a few stable scattered punctate foci of white matter T2 hyperintensity in the periventricular, subcortical, and hemispheric deep white matter. These foci are nonspecific but statistically most likely relate to small vessel ischemic changes. Midline structures appear normally formed. There is a stable 5 mm benign-appearing pineal cyst. The pituitary gland appears normal. Posterior fossa structures appear normal. Cerebellar tonsils are appropriately located. Major flow voids are preserved within the skull base. The globes and orbital contents demonstrate no abnormalities. Paranasal sinuses are clear bilaterally. The mastoids and tympanic cavities are normally aerated. Extracranial soft tissues demonstrate no abnormalities. No suspicious bone marrow changes are evident. Atlantoaxial joint is normal. MR/MR head/brain wo con IMPRESSION: 1. No evidence of intracranial hemorrhage, acute infarction, mass effect, or edema. 2. Minimal stable changes of small vessel ischemia. 3. Stable benign-appearing 5 mm pineal cyst. Electronically signed by: Elvin Roberts MD 03/04/2025 12:57 PM EDT
--- OUTSIDE RECORDS SUMMARY | 2025-03-04 11:25 | XMS_ITS | Data Portability ---
Author Organization [facility], Telehealth Patient Home Address [address] [place] [address] Assessment Encounter Date Assessment Date Assessment LastModified by Organization Details LastModified Time 08/02/2021 08/02/2021 [address] [place] [id number] (NEUROPHYSIOLOGY TECH) : RYAN LOW MUST MEET 2 OF [...] COVERED Not available 08/02/2021 12:44:05 02/26/2023 02/26/2023 [id number] [place] [id number] (NEUROPHYSIOLOGY TECH) : RYAN LOW MUST MEET 2 OF [...] COVERED Not available 02/26/2023 09:08:56 10/11/2023 10/11/2023 [id number] [place] [address] (NEUROPHYSIOLOGY TECH) : MDM LOW MUST MEET 2 OF [...] Organization Details Last Modified Time Details Appointments FOLLOW UP 15 2024 02:45P M DR ROMAN Not available Not available Not available Lab CMP, serum or plasma 2022 023 ADAN Not available 12/27/2022 12:06:24 magnesium , serum or plasma 2022 023 [email or web address] Not available 12/26/2022 14:31:34 Referral None recorded. Procedures None recorded. Surgeries None recorded. Imaging MR, angiogram , head, w/o contrast 2024 025 [email or web address] 10 [facility], [address] [place], [address], 02/23/2025 09:14:48 MRI, brain, w/o contrast 2022 023 [email or web address] [facility], [address] [place], [address], 01/04/2023 08:39:28 Medication Orders sertralin e 100 mg tablet 2024 025 [facility], [address] [place] [address], [id number], 02/12/2025 12:13:43 bupropion HCl SR 150 mg tablet,12 hr sustained -release 2024 025 [facility], [address] [place] [address], [address], 02/12/2025 12:13:43 Valium 5 mg tablet [email or web address] [facility], [address] [place] [address], [address], 02/12/2025 12:12:06 baclofen 10 mg tablet 2022 023 [facility], [address] [place] [address], [address], 12/26/2022 14:23:17 Patient TargetsNo targets recorded. Patient InstructionsNo instructions recorded. Reason for Referral None Reported. Results Created Date Observation Date Name Description Value Unit Range Abnormal Flag Note LastModifiedBy Organization Detail LastModifiedTime 02/14/2002/08/2023 MRI, brain , w/wo contr ast No observ ation record ed. [email or web address] [facility] (Medical Records) [address] [place], [address], 03/12/2023 13:52:46 02/19/2002/18/2025 CT, abdom en + pelvi s, w/ contr ast No observ ation record ed. [facility] (Medical Records) [address] [place], [address], 02/18/2025 11:22:12 Result Notes None recorded. 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 Procedures Surgical History Date Name Laterality Status Provider Name and Address Organization Details Recorded Time 10/22/19 19 Date of Last Pap Smear completed Cesilia [address], [address], [facility] 10/22/2018 10:51:03 ligation of bilateral fallopian tubes completed Cesilia [address], [address], [facility] 10/22/2018 10:48:58 extraction of wisdom tooth completed Cesilia [address], [place], [address], [facility] 10/22/2018 10:49:08 Imaging Results None [...] No t Available cephalexin 500 mg capsule TAKE ONE CAPSULE BY MOUTH EVERY 8 HOURS active Not Available Not Available No t Available gabapentin 300 mg capsule 10/28 completed [...] Not Available Not Available No t Available ondansetron 4 mg disintegrat ing tablet DISSOLVE ONE TABLET BY MOUTH THREE TIMES A DAY NEEDED FOR NAUSEA OR VOMITING active Not Available Not Available No t [...] Updated DateTime 3 152.4 cm 30.3 kg/m2 00984.8 2 g 95 /min 97 % 97 % 140/80 mm[Hg] [facility] 3 13:50:05 Date Recorded Body height Body mass index (BMI) Body weight Heart rate Oxygen saturation Oxygen saturation in Arterial blood by Pulse oximetry Systolic And Diastolic Provider Name and Address Organization Details Last Updated DateTime 5 165.1 cm 25.8 kg/m2 58844.8 2 g 98 /min 88 % 88 % 128/78 mm[Hg] Acacia Jackson [facility] 5 11:56:43 Social History Question Answer Notes LastModified by Organizat ion Details LastModified Time Tobacco Smoking Status Current Every Day Smoker Not Available [facility] 06/21/2020 03:36:24 What Was The Date Of Your Most Recent Tobacco Screening? 02/12/2025 [email or web address] Information not available 02/12/2025 Sex: Unknown Functional Status Question Answer Note LastModified by Organization D etails LastModified Time Do you or have you ever used any other forms of tobacco or nicotine? No [email or web address] Information not available 12/26/2022 Mental Status None [...] toxoid, unspecified formulation 03/01/2017 completed Elida ornelas [facility] 10/27/2018 16:45:59 Past Encounters Encounter ID Performer Location Encounter Start Date Encounter Closed Date Diagnosis/Indication Diagnosis SNOMED-CT Code Diagnosis ICD10 Code Diagnosis Note [id number] Baldomero Roman [facility] [address] [facility] [address] 10/28/2018 14:17:18 10/28/2018 14:33:04 Acute sinusitis 93063176 J01.90 Tobacco user 782552989 Z 72.0 Anxiety 98347210 F41.9 [id number] Baldomero Roman [facility] [address] [facility] [address] 11/10/2019 15:57:53 11/16/2019 16:41:18 Pneumonia 354048104 J18.9 Patient has been having constant dry cough, nasal congestion , post-nasal drip for the past two weeks She has a hx of smoking She is no longer having fevers and her other symptoms have been improving gradually She has not been exposed to anyone with COVID-19 and states she has kept herself self-quara ntined Patient most likely having asthma/[employer] D exacerbati on in the setting of [...] and agrees to this plan Tobacco user 503886717 Z 72.0 as above [id number] Baldomero Roman [facility] [address] [place] [address], [place] [address] 12/01/2019 08:52:42 12/01/2019 09:43:57 Adult health examination 163328766 Z00.01 Active or passive immunization 730804023 Z23 Cellulitis 915958493 L03 .90 from contact dermatitis Contact dermatitis 92999 004 L25.9 Anxiety 97869288 F41.9 Depressive disorder 3548 9007 F32.9 Dysmenorrhea 178611960 N 94.6 [id number] Baldomero Roman [facility] [address] [place] [address] [place] [address] 06/28/2020 15:28:42 06/28/2020 16:02:25 Pain of right wrist 2676177857 66007 M25.531 need XRs will fu afterwards will use thumb spica brace in the meantime [id number] Baldomero Roman [facility] [address] [facility], [place] [address] 07/06/2020 13:50:20 07/06/2020 16:57:42 Pain of right wrist 6961625231 47373 M25.531 need XRs again will fu afterwards will go get new brace in meantime with order for proper fit [id number] Baldomero Roman [facility] [address] [facility] [place] [address] 08/02/2021 08:28:32 08/02/2021 14:56:40 Anxiety 37871668 F41.9 stable and is not having any issues [id number] Baldomero Roman [facility] [address] [facility] [place] 7 12/26/2022 13:43:34 12/26/2022 14:38:46 Blepharospasm of right eyelid 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 G24.5 [id number] Baldomero Acevedo Jerry [facility] [address] [facility] [place] 7 02/26/2023 07:56:59 02/26/2023 10:31:30 Blepharospasm of right eyelid 4250749035 1658828 G24.5 see below 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 7188135346 0874898 G51.31 we will try a valium tablet to see if this completely erradicate s the issue or notdependi ng on response we will prob need to have her see neurol Blepharosp asm of right eyelid 2389099626 0242540 G24.5 see below Anxiety 59681331 F41.9 stable and is not having any issues Meige syndrome 993037486 G24.4 has seen 2 neurologis ts who [...] Oreilly Member ID Guarantor Name 02/12/2025 1 [facility] (O) [id number] Luz Duran [id number] Luz Duran 02/16/2025 1 [place]: [facility] PLAN Luz Duran [id number] Luz Duran Notes Date Note Type Note Provider Name a nd Address Organization Details Recorded Time 08/02/2021 text/html patient is evaluated via tele/video assessment per patient consentduring current pandemichas had a recent URI covid negativemeds are fine no change needed Baldomero Roman DO [address] [place] [address], [address], [facility] 08/02/2021 13:35:54 12/26/2022 text/html here for c/o r eyelid twitching and relates that she had it a year ago and has been gradually getting worse does use computer a lot Baldomero Roman DO [address] [place], [address], [facility] 12/26/2022 14:24:42 02/26/2023 text/html patient is evaluated via tele/video assessment per patient consentduring current pandemic still having a great deal of eye twitching on right eyelid extending down to corner of her mouth so much that she is talking diff because of itreviewed mri w pt which is neg Baldomero Roman DO [address] [place], [address], [facility] 02/26/2023 10:16:13 10/11/2023 text/html patient is evaluated via tele/video assessment per patient consentduring current pandemic 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 and relates that she is very scared and upset because it will get worsetold no cure and will progress Baldomero Roman DO [address] [place], [address], [facility] 10/11/2023 17:06:28 02/12/2025 text/html relates her symptoms are getting bad againhas a signif droop of right facial musclesspeech is getting affectedalso eyelid spasm is coming back also relates that she is getting stupid forgetting things, getting almost dyslexic forgetting numbers hard time seeing at night has appt with dr tamara Roman DO [address] [place], [address], [facility] 02/12/2025 12:17:52 OBGyn Episode No OBEpisode recorded.
--- OUTSIDE RECORDS SUMMARY | 2025-03-04 11:25 | XMS_ITS | Clinical Summary ---
Author Organization [employer] Address [address] [facility] 7[address] [place] [address] Care Team Providers Care Actuarial Internship Name Role Phone Unavailable Primary Care Provider [...] 2024 Tobacco Screening 05/08/2024 05/08/2023 Influenza Vaccine (#1) 2025 Zoster Vaccines (1 of 2) 2026 [...]
== END 2025-03-04 10:46 | disposition home or self-care (01) ==
LOC: HO.MRI 10:45
PROVIDERS: PCP Internal Medicine; Visit Provider Internal Medicine
DX: G24.4 Idiopathic orofacial dystonia (principal)
CPT/HCPCS: 70551

== ENCOUNTER 2025-05-04 10:47 | Outpatient (REF) | payer MEDICAID, SELFPAY ==
[2025-05-06 15:29] LABS: Antibody to SS-A Antigen <1.0 NEG AI (<1.0 NEG); Antibody to SS-B Antigen <1.0 NEG AI (<1.0 NEG)
== END 2025-05-04 10:48 | disposition home or self-care (01) ==
LOC: HO.LAB 10:47
PROVIDERS: Visit Provider Psychiatry & Neurology Neurology
DX: G43.909 Migraine, unspecified, not intractable, without status migrainosus (principal); G24.4 Idiopathic orofacial dystonia; H04.121 Dry eye syndrome of right lacrimal gland
CPT/HCPCS: 36415; 86235; 99212; J0585

== ENCOUNTER 2025-05-04 10:47 | Outpatient (AMB) | payer MEDICAID, SELFPAY ==
--- NOTE | 2025-05-04 11:10 | A.OFFVIS_ITS ---
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 She was treated with SSRIs for decades for depression but did not have any expsoure to antipsychotics or metoclopromide developed facial movements on the right side around 2021. Slowly it was getting worse. Sometimes, it led to right eye closure. There was no known trigger. She has been seen at [facility] and had tried baclofen and valium with no benefit noted. She received first Botox treatment in December of 2023. He was complaining of dryness of right eye and throbbing discomfort behind it. Apparently she saw an eye doctor and no ophthalmological cause was found. She was using a drop. [facility] Medical History Anxiety Depression Family History Mother No problems noted. Father No problems noted. 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 Physical Exam Neuro Other: Mental Status: Alert and oriented to person, place, and time. Normal attention. Normal spontaneous speech, fluency, and comprehension. No obvious issues with mood and memory. Affect is appropriate. Cranial Nerves: R eye is almost closed. Gait and Station: No obvious gait abnormality. No ataxia or instability. Extrapyramidal: Full facial expressions and blinking. No rigidity. Movements are appropriate with no tremor or abnormality. Speech: Normal; no dysarthria or tremor. Assessment & Plan Assessment & Plan (1) Meige syndrome (blepharospasm with oromandibular dystonia): Comment: Meds tried: Baclofen, valium, trihexyphenidyl MRI brain WO at [facility] in February 2025: No sig change MRI brain WO at [facility] in January 2023: Mild non specific WM changes, small pineal cyst. 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 Category: Medical (2) Migraine: Code(s): G43.909 - Migraine, unspecified, not intractable, without status migrainosus Category: Medical Qualifiers: Migraine type: migraine (< 15 days per month) without aura Status migrainosus presence: without status migrainosus Intractability: not intractable Qualified Code(s): G43.009 - Migraine without aura, not intractable, without status migrainosus (3) Dry eye: Code(s): H04.129 - Dry eye syndrome of unspecified lacrimal gland Category: Medical Qualifiers: Laterality: right Qualified Code(s): H04.121 - Dry eye syndrome of right lacrimal gland Plan Impression: a; Meige syndrome b: Migraine c: Non specific WM changes Orders: Orders AMB Botulinum toxin Injection - Patient Supplied N/C Today G24.4 - Idiopathic orofacial dystonia Sjogren's Antibodies Today H04.129 - Dry eye syndrome of unspecified lacrimal gland Medications: New onabotulinumtoxinA 100 units IM ONCE 1 ea 0RF G24.4 - Idiopathic orofacial dystonia Coding Level of Care Code Est Pt Level 4 (44499) Diagnoses Meige syndrome (blepharospasm with oromandibular dystonia) G24.4 Migraine without aura and without status migrainosus, not intractable G43.009 Migraine type: migraine (< 15 days per month) without aura Status migrainosus presence: without status migrainosus Intractability: not intractable Dry eye of right side H04.121 Laterality: right
--- OUTSIDE RECORDS SUMMARY | 2025-05-04 14:26 | XMS_ITS | Clinical Summary ---
Author Organization [employer] Address [address] [facility] 7[address] [place] [address] Care Team Providers Care Healthcare Representative Name Role Phone Unavailable Primary Care Provider [...] 03/20/2023 09/19/2022 Dental X-Ray: Bitewings 09/20/2023 09/19/2022 Tobacco Screening 05/08/2024 05/08/2023 COVID-19 Vaccine (1 - 2023-2 5 season) 2025 Influenza Vaccine (#1) 2025 Zoster Vaccines (1 [...]
--- OUTSIDE RECORDS SUMMARY | 2025-05-04 14:26 | XMS_ITS | Encounter Summary ---
Author Organization [facility] Address [address] [place] [address] Phone Care Team Providers Care Semiconductor Processor Name Role Phone Baldomero Edwards DO Unavailable Fallon Adams [employer] Unavailable [phone] Bisi Maldonado [employer] Unavailable Jj Quinteros MD Unavailable Milly Carcamo [employer] Unavailable Mauricio Hahn MD Unavailable [phone] Baldomero Edwards DO Primary Care Provider [phone] Encounter Details Date Type Department Care Team (Latest Contact Info) Description 07/06/2020 Transcribe Orders Virtual Department [address] [place] [address] Senait Tim PA [address] [place] [address] [place] [address] Right wrist pain (Primary Dx) Social History Tobacco Use Types Packs/Day Years Used Date Smoking Tobacco: Every Day Cigarettes Smokeless Tobacco: Never Alcohol Use Standard Drinks/Week Comments Yes 0 (1 standard drink = 0.6 oz pur e alcohol) Comments No Sex and Gender Information Value Date Recorded Sex Assigned at Female 03/23/2024 1:37 PM EDT Legal Sex Female 9:27 PM EDT Gender Identity Female 03/23/2024 1:37 PM EDT Sexual Orientation Straight 03/23/2024 1: 37 PM EDT documented as of this encounter Plan of Treatment Not on file documented as of this encounter Results * XR WRIST 3 OR MORE VIEWS (RIGHT) (07/06/2020 3:47 PM EST) Anatomical Region Laterality Modality Wrist Right Computed Radiogr aphy 07/06/2020 4:13 PM EST Impressions 07/06/2020 4:15 PM EST No significant bony abnormality. POS [id number] Narrative 07/06/2020 4:15 PM EST Frontal, lateral, oblique, and specialized navicular views are compared with the study of 06/28/2020 disclose no fracture, subluxation, or other significant abnormality involving the visualized regional skeletal structures. No gross displacement of the pronator fat pad is apparent. Procedure Note Valdo Sherman MD - 07/06/2020 Frontal, lateral, oblique, and specialized navicular views are comparedwith the study of 06/28/2020 disclose no fracture, subluxation, or othersignificant abnormality involving the visualized regional skeletalstructures. No gross displacement of the pronator fat pad is apparent. IMPRESSION: No significant bony abnormality. POS [id number] Senait VALENCIA IMG XR UPPER EXTREMITY Anika l Result documented in this encounter Visit Diagnoses Diagnosis Right wrist pain- Primary Pain in joint, forearm Right wrist pain Pain in joint, forearm documented in this encounter Care Teams Semiconductor Processor Relationship Specialty Start Date End Date Baldomero Edwards DO [address] [facility] [address] [place] [address] PCP - General 08/22/17 Baldomero Edwards DO [address] [facility] [place] [address] Historical LMR Provider 06/03/17 08/26/21 Fallon Adams NP [address] [place] [address] [email or web address] Historical LMR Provider 06/03/17 Bisi Maldonado NP [address] [place] [address] [email or web address] Historical LMR Provider 06/03/17 2 Jj Quinteros MD [address] [address] Historical LMR Provider 06/03/17 08/26/21 Milly Carcamo NP [address] [place] [address] Historical LMR Provider 06/03/17 2 Mauricio Hahn MD [address] [address] [email or web address] Historical LMR Provider 06/03/17 08/26/21 documented as of this encounter Additional Source Comments The information contained in this document represents components of the legal health record. It is not the complete legal health record.[facility]
--- OUTSIDE RECORDS SUMMARY | 2025-05-04 14:26 | XMS_ITS | Clinical Summary ---
Author Organization [facility] Address [address] [place] [address] Phone Care Team Providers Care Lodge Officer Name Role Phone Fallon Adams Khalif MACHINE IRONER Unavailable [phone] Baldomero Edwards DO Primary Care Provider [phone] Allergies No known active allergies Medications valACYclovir (VALTREX) 1000 MG tablet 1 tablet Orally bid 3 Active buPROPion (WELLBUTRIN SR) 100 MG SR 12 hr tablet Orally Active sertraline (ZOLOFT) 100 MG tablet Take 1 tablet by mouth daily. Active predniSONE (DELTASONE) 10 MG tablet TAKE 4 TABLETS BY MOUTH DAILY FOR 3 DAYS, THEN 3 TABLETS DAILY FOR 3 DAYS, THEN 2 TABLETS DAILY FOR 3 DAYS THEN 1 TABLET DAILY FOR 3 DAYS 0 Active medroxyPROGESTE Maurice (DEPO-PROVERA) 150 mg/mL Syrg IM injection syringeIndicati ons:Dysmenorrhe a Inject 1 mL (150 mg total) into the muscle every 3 (three) months. 1 mL 3 1 Active Additional Information Patient not taking.Reported on 06/10/2024 Active Problems Problem Noted Date Diagnosed Date Menorrhagia with regular cycle 05/09/2020 Overview (05/09/2020): Had irregular bleeding on both P only OCPs and 9 months of DEpoProvera Assessment & Plan (05/09/2020 2:12 PM EDT): Options for treatment discussed (ablation, LNG IUD, hyst) , leaning toward hyst, info given, await decision Dysmenorrhea 10/21/2018 Assessment & Plan (09/01/2019 3:21 PM EST): After discussion of options, plans to try DepoP; is happy to know that hyst is an option as well, info given on that Assessment & Plan (06/04/2019 7:54 PM EDT): Opts to try P only OCP; LNG may be better option roasterman. Wants to avoid possible weight gain on DEpo P Assessment & Plan (10/21/2018 12:03 PM EST): We discussed history of increasing dysmenorrhea and reviewed normal exam findings. Will check CGC and ultrasound. We reviewed possible treatment options - combination ocps not an option unless Anaid stops smoking; Mirena IUD is an option. We also reviewed appropriate NSAID dosages and possibility; cautioned not to take more than recommended dosages. Cigarette smoker 10/21/2018 Overview (10/21/2018): 10/21/18 Smokes around 5 cigarettes/day, down from 1 PPD. Is not ready to pursue treatment/cessation assistance, but will consider. Anxiety and depression 10/21/2018 Overview (10/21/2018): Stable on current meds; does not have therapist currently but may pursue. Immunizations Immunization Administration Dates Next Due Td (adult) 5 Lf Tetanus Toxoid, PF, Adsorbed 04/2017 Tetanus toxoid, unspecified formulation 03/01/20 17 Family History Medical History Relation Comments No Known Problems Father Diabetes Mother Relation Status Comments Father Alive Mother Alive Social History Tobacco Use Types Packs/Day Years Used Date Smoking Tobacco: Every Day Cigarettes Smokeless Tobacco: Never Tobacco Cessation:Ready to Q uit: Not Asked; Counseling Given: Not Answered Alcohol Use Standard Drinks/Week Comments Yes 0 (1 standard drink = 0.6 oz pur e alcohol) Education Answer Date Recorded Are you interested in more education? Not on nicole e 12/14/2022 Are you concerned about learning? Not on file 12/14/2022 No 12/14/2022 No 12/14/2022 Digital Access Answer Date Recorded No 01/14/2023 No 01/14/2023 Reliable internet access at home? Not on file 01/14/2023 Device with a working camera? Not on file Comments No Sex and Gender Information Value Date Recorded Sex Assigned at Female 03/23/2024 1:37 PM EDT Legal Sex Female 9:27 PM EDT Gender Identity Female 03/23/2024 1:37 PM EDT Sexual Orientation Straight 03/23/2024 1: 37 PM EDT Last Filed Vital Signs Vital Sign Reading Time Taken Comments Blood Pressure 150/90 09/07/2019 3:52 PM EST Pulse - - Temperature - - Respiratory Rate - - Oxygen Saturation - - Inhaled Oxygen Concentration - - Weight 65.8 kg (145 lb) 06/10/2024 11:02 AM EDT Height 152.4 cm (5') 06/10/2024 11:02 AM EDT Body Mass Index 28.32 06/10/2024 11:02 AM EDT Plan of Treatment Health Maintenance Due Date Last Done Comments LIPID PANEL 1976 DEPRESSION SCREENING 1988 SMOKING Hx and SMOKELESS TOBACCO SCREENING 1989 HEPATITIS C SCREENING 1994 HIV ONE-TIME SCREENING (18-65 YEARS) 1994 PNEUMOCOCCAL VACCINES (0-49 years) (1 of 2 - PCV) 1995 SCREENING FOR DIABETES 2011 MAMMOGRAM 11/11/2020 11/11/2018, 11/11/2018 COLOGUARD 2021 COLONOSCOPY 2021 COLORECTAL CANCER SCREENING 2021 FIT TEST 2021 FOBT 2021 SIGMOIDOSCOPY 2021 VIRTUAL COLONOSCOPY 2021 PAP SMEAR 10/22/2023 10/21/2018, 12/2018, 07/27/2013, Additional history exists INFLUENZA VACCINE (#1) 2025 COVID-19 VACCINE ( season) 2025 Adult Td,Tdap Booster 02/24/2027 02/24/2017 HEPATITIS A VACCINES Aged Out No long er eligible based on patient's age to complete this topic HIB VACCINES Aged Out No longer eligi ble based on patient's age to complete this topic MENINGOCOCCAL VACCINES (ACWY) Aged Out No longer eligible based on patient's age to complete this topic MENINGOCOCCAL VACCINES (B) Aged Out N o longer eligible based on patient's age to complete this topic Medical Devices Not on file Procedures Procedure Name Priority Date/Time Associated Diagnosis Comments BI MAMMOGRAM SCREENING WITH TOMOSYNTHESIS WITH CAD (BILATERAL) Routine 11/11/2018 9:25 AM EDT Encounter for screening mammogram for malignant neoplasm of breast PAP TEST Routine 10/21/2018 12:00 AM EST from Last 3 Months or Most Recently Relevant to Health Maintenance Results * BI MAMMOGRAM SCREENING WITH TOMOSYNTHESIS WITH CAD (BILATERAL) (11/11/2018 9:25 AM EDT) Anatomical Region Laterality Modality Breast Left, Breast Right, Breast Bilateral Bila teral Mammography 11/11/2018 1:32 PM EDT Impressions 11/11/2018 1:33 PM EDT No mammographic finding indicative of malignancy. Routine screening is recommended. BI-RADS CATEGORY: 1 - Negative. DENSITY: There are scattered fibroglandular densities. POS -[id number] Narrative 11/11/2018 1:33 PM EDT Bilateral full-field digital screening mammography is obtained and read in conjunction with computer-aided detection. Tomosynthesis as well as 2-D C view imaging of both breasts in two planes also obtained. This is a baseline study No dominant mass, architectural distortion, worrisome asymmetry, or suspicious calcification is identified. No skin or nipple finding of concern is appreciated. Procedure Note Britt Knutson MD - 11/11/2018 Bilateral full-field digital screening mammography is obtained and read inconjunction with computer-aided detection. Tomosynthesis as well as 2-D Cview imaging of both breasts in two planes also obtained. This is abaseline study No dominant mass, architectural distortion, worrisome asymmetry, orsuspicious calcification is identified. No skin or nipple finding ofconcern is appreciated. IMPRESSION: No mammographic finding indicative of malignancy. Routine screening isrecommended. BI-RADS CATEGORY: 1 - Negative. DENSITY: There are scattered fibroglandular densities. POS -[id number] Fallon Adams MACHINE IRONER IMG MG EXAMS Final Result * Pap Smear (10/21/2018 12:00 AM EST) 10/21/2018 10/22/2018 10: 57 AM EST Narrative SEE NARRATIVE - 10/28/2018 3:53 [place] [id number] Coffee Brewer: Taina Ibarra MD FOOD SERVICE ATTENDANT Cytology Report FINAL DIAGNOSIS A. PAP SMEAR (SUREPATH) CE: SPECIMEN ADEQUACY: Satisfactory for evaluation; transformation zone present. INTERPRETATION: NEGATIVE FOR INTRAEPITHELIAL LESION OR MALIGNANCY. 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 The Pap test is a screening test primarily for squamous cancers and precursors and has associated false-negative and false-positive results. New technologies such as liquid-based preparations may decrease but will not eliminate all false-negative results. Regular sampling and follow-up of unexplained clinical signs and symptoms are recommended to minimize false negative results. PROCEDURES/ADDENDA HPV Testing (Requested) Ordered Date: 10/22/2018 HPV Test Negative for high-risk human papillomavirus types 16, 18, 45 and the Other high risk probe set (Includes 31, 33, 35, 39, 51, 52, 56, 58, 59, 66, 68) by [employer] HR-HPV analysis. Clinical correlation is advised. This HPV test was performed at [facility], [address] [place] [address]. This test has been FDA approved for SurePath cervical cytology specimens. The accuracy and precision of this test for all other specimen sources has been verified in the Cytopathology Laboratory of the [facility] and has not been cleared or approved by the U.S. Food and Drug Administration. Clinical correlation is advised. CLINICAL HISTORY Date of Last Menstrual Period: 10/13/2018 Other Clinical Conditions: Screening Pap SPECIMEN SOURCE A: PAP SMEAR (SUREPATH) CE Patient Name: ANAID JOHNSON : 1975 (Age: 43) Sex: F Institution: [facility] Location: [facility] Date of Collection: 10/21/2018 Date of Reported: 10/28/2018 15:53 Results to: Fallon Adams MSN, BS Fallon Adams MACHINE IRONER CYTOLOGY ORDERABLES Final Resu lt SEE NARRATIVE from Last 3 Months or Most Recently Relevant to Health Maintenance Insurance [facility] NON NSPG PCP SILVER CLARITY CONNECTORCARE [facility] NON NSPG PCP SILVER CLARITY CONNECTORCARE [employer] NON NSPG PCP SILVER CLARITY CONNECTORCARE [facility] NON NSPG PCP SILVER CLARITY CONNECTORCARE [facility] NON NSPG PCP SILVER CLARITY CONNECTORCARE [place]LL[place]ENSE NON NSPG PCP SILVER CLARITY CONNECTORCARE WELLSENSE NON NSPG PCP SILVER CLARITY CONNECTORCARE WELL[employer]ENSE NON NSPG PCP SILVER CLAR[place] [address] [place] [address] NON NSPG PCP YUSEF [employer] CONNECTORCARE Care Teams Lodge Officer Relationship Specialty Start Date End Date Baldomero Edwards DO [address] [place] [address] [email or web address] PCP - General 08/22/17 Fallon Adams NP [address] [place] [address] [email or web address] Historical LMR Provider 06/03/17 Additional Source Comments The information contained in this document represents components of the legal health record. It is not the complete legal health record.[facility]
--- OUTSIDE RECORDS SUMMARY | 2025-05-04 14:26 | XMS_ITS | Encounter Summary ---
Author Organization [facility] Address [address] [place] [address] [place] [address] Phone Care Team Providers Care It Solutions Architect Name Role Phone Fallon Adams Khalif INFORMATION TECHNOLOGY CONSULTANT Unavailable [phone] Baldomero Edwards DO Primary Care Provider [phone] Encounter Details Date Type Department Care Team (Late st Contact Info) Description 06/10/2024 Procedure Pass [facility] - MRI, [facility] [address] [place] [address] Social History Tobacco Use Types Packs/Day Years [...] on file documented as of this encounter Visit Diagnoses Not on filedocumented in this encounter Care Teams It Solutions Architect Relationship Specialty Start Date End Date Baldomero Edwards DO [address] [place] [address] [email or web address] PCP - General 08/22/17 Fallon Adams NP [address] [place] [address] [email or web address] Historical LMR Provider 06/03/17 documented as of this encounter Additional Source Comments The information contained in this document represents components of the legal health record. It is not the complete legal health record.[facility]
--- OUTSIDE RECORDS SUMMARY | 2025-05-04 14:26 | XMS_ITS | Encounter Summary ---
Author Organization [facility] Address [address] [place] [address] Phone Care Team Providers Care Light Out Examiner Name Role Phone Baldomero Edwards DO Unavailable Fallon Adams STUDY COORDINATOR Unavailable [phone] Bisi Maldonado STUDY COORDINATOR Unavailable [phone] Jj Quinteros MD Unavailable [phone] Milly Carcamo STUDY COORDINATOR Unavailable [phone] Mauricio Hahn MD Unavailable [phone] Baldomero Edwards DO Primary Care Provider [phone] Encounter Details Date Type Department Care Team (Late st Contact Info) Description 09/27/2017 Procedure Pass [address] [address] Social History Tobacco Use Types Packs/Day Years Used Date Smoking Tobacco: Never Assessed Comments Unknown Sex and Gender Information Value [...] on filedocumented in this encounter Care Teams Light Out Examiner Relationship Specialty Start Date End Date Baldomero Edwards DO [address] [address] PCP - General 08/22/17 Baldomero Edwards DO [address] [place] [address] [place] [address] Historical LMR Provider 06/03/17 08/26/21 Fallon Adams STUDY COORDINATOR [address] [place] [address] Historical LMR Provider 06/03/17 Bisi Maldonado STUDY COORDINATOR [address] [place] [address] [email or web address] Historical LMR Provider 06/03/17 2 Jj Quinteros MD 22 [facility], [address]nd [place] [address] Historical LMR Provider 06/03/17 08/26/21 Milly Carcamo NP [address] [place] [address] Historical LMR Provider 06/03/17 2 Mauricio Hahn MD [address] [address] Historical LMR Provider 06/03/17 08/26/21 documented as of this encounter Additional Source Comments The information contained in this document represents components of the legal health record. It is not the complete legal health record.[facility]
--- OUTSIDE RECORDS SUMMARY | 2025-05-04 14:26 | XMS_ITS | Encounter Summary ---
Author Organization [facility] Address [address] [place] [address] Phone Care Team Providers Care Regional Rehabilitation Director Name Role Phone Baldomero Edwards DO Unavailable Fallon Adams MANUFACTURING QUALITY TECHNICIAN Unavailable [phone] Bisi Maldonado MANUFACTURING QUALITY TECHNICIAN Unavailable [phone] Jj Quinteros MD Unavailable Milly Carcamo MANUFACTURING QUALITY TECHNICIAN Unavailable [phone] Mauricio Hahn MD Unavailable [phone] Baldomero Edwards DO Primary Care Provider [phone] Encounter Details Date Type Department Care Team (Late st Contact Info) Description 09/27/2017 Ancillary Orders Virtual Department [address] [place] [address] Baldomero Edwards DO [address] [facility] [address] [email or web address] Lumbar disc herniation; Radiculopathy, unspecified spinal region; Weakness Social History Tobacco Use Types Packs/Day Years [...] documented as of this encounter Visit Diagnoses Diagnosis Lumbar disc herniation Displacement of lumbar intervertebral disc without myelopathy Radiculopathy, unspecified spinal region Weakness Other malaise and fatigue documented in this encounter Care Teams Regional Rehabilitation Director Relationship Specialty Start Date End Date Baldomero EdwardsDO [address] [address] PCP - General 08/22/17 Jerry Baldomero DO Johnathan [address] [facility] [address] Historical LMR Provider 06/03/17 08/26/21 Fallon Adams NP [address] [place] [address] Historical LMR Provider 06/03/17 Bisi Maldonado NP [address] [place] [address] [email or web address] Historical LMR Provider 06/03/17 2 Jj Quinteros MD 22 [facility], 2nd [place] [address] Historical LMR Provider 06/03/17 08/26/21 Milly Carcamo NP [address] [place] [address] Historical LMR Provider 06/03/17 2 Mauricio Hahn MD [address] [address] ([email or web address]) [email or web address] Historical LMR Provider 06/03/17 08/26/21 documented as of this encounter Additional Source Comments The information contained in this document represents components of the legal health record. It is not the complete legal health record.[facility]
--- OUTSIDE RECORDS SUMMARY | 2025-05-04 14:26 | XMS_ITS | Encounter Summary ---
Author Organization [facility] Address [address] [place] [address] Phone Care Team Providers Care Supervisor [employer] Name Role Phone Baldomero Edwards DO Unavailable Fallon Adams SOIL SCIENCE TECHNICAL OFFICER Unavailable [phone] Bisi Maldonado SOIL SCIENCE TECHNICAL OFFICER Unavailable Jj Quinteros MD Unavailable Milly Carcamo SOIL SCIENCE TECHNICAL OFFICER Unavailable Mauricio Hahn MD Unavailable Baldomero Edwards DO Primary Care Provider [phone] Encounter Details Date Type Department Care Team (Late st Contact Info) Description 06/28/2020 Ancillary Orders Virtual Department [address] [place] [address] Senait Tim PA [address] [place] [address] [place] [address] Pain in right wrist Social History Tobacco Use Types Packs/Day Years [...] XR WRIST 3 OR MORE VIEWS (RIGHT) (06/28/2020 4:50 PM EST) Anatomical Region Laterality Modality Wrist Right Computed Radiogr aphy 06/28/2020 5:49 PM EST Impressions 06/28/2020 5:50 PM EST No bony abnormality. Narrative 06/28/2020 5:50 PM EST EXAM: XR WRIST 3 OR MORE VIEWS (RIGHT) COMPARISON: None FINDINGS: No fracture, dislocation or other bone or joint abnormality is seen. The soft tissues are normal. Procedure Note Licha Acevedo MD - 06/28/2020 EXAM: XR WRIST 3 OR MORE VIEWS (RIGHT) COMPARISON: None FINDINGS: No fracture, dislocation or other bone or joint abnormality is seen. Thesoft tissues are normal. IMPRESSION: No bony abnormality. Senait VALENCIA IMG XR UPPER EXTREMITY Anika l Result documented in this encounter Visit Diagnoses Diagnosis Pain in right wrist Pain in joint, forearm Pain in right wrist Pain in joint, forearm documented in this encounter Care Teams Supervisor [employer] Relationship Specialty Start Date End Date Baldomero Edwards DO [address] [place] [address] [address] PCP - General 08/22/17 Baldomero Edwards DO [address] [facility] [place] [address] Historical LMR Provider 06/03/17 08/26/21 Fallon Adams NP [address] [place] [address] [email or web address] Historical LMR Provider 06/03/17 Bisi Maldonado NP [address] [place] [address] [email or web address] Historical LMR Provider 06/03/17 2 Jj Quinteros MD 22 [facility] [place] [address] Historical LMR Provider 06/03/17 08/26/21 Milly Carcamo NP [address] [place] [address] Historical LMR Provider 06/03/17 2 Mauricio Hahn MD 22 [facility], [facility] [address] [place] [address] Historical LMR Provider 06/03/17 08/26/21 documented as of this encounter Additional Source Comments The information contained in this document represents components of the legal health record. It is not the complete legal health record.[facility]
--- OUTSIDE RECORDS SUMMARY | 2025-05-04 14:27 | XMS_ITS | Encounter Summary ---
Author Organization [facility] Address [address] [place] [address] Phone Care Team Providers Care Kick Press Setter Name Role Phone Baldomero Edwards DO Unavailable Fallon Adams CREDIT DIRECTOR Unavailable [phone] Bisi Maldonado CREDIT DIRECTOR Unavailable Jj Quinteros MD Unavailable Milly Carcamo CREDIT DIRECTOR Unavailable Mauricio Hahn MD Unavailable [phone] Baldomero Edwards DO Primary Care Provider [phone] Encounter Details Date Type Department Care Team (Late st Contact Info) Description 09/27/2017 Ancillary Orders Virtual Department 30 [place] [address] Baldomero Edwards DO 179 [facility] [place] [address] Degenerative lumbar disc; Weakness Social History Tobacco Use Types Packs/Day [...] documented as of this encounter Results * MRI LUMBAR SPINE (BONE) WITHOUT CONTRAST (10/08/2017 3:03 PM EST) Anatomical Region Laterality Modality L-spine Magnetic Resonan ce 10/08/2017 3:07 PM EST Impressions 10/08/2017 3:13 PM EST Small broad-based/right paramedian L4-5 disc protrusion. Chronic L5-S1 disc bulge with slight progression of disc desiccation and evolution of right paramedian annular tear since 2010. POS - [id number] Narrative 10/08/2017 3:13 PM EST TECHNIQUE: Exam performed on a 1.5 Destinee high-field MRI scanner. Sagittal T1, T2 and STIR, axial T1 and T2 sequences were obtained. FINDINGS: Comparison is made with the prior MR of 06/22/2011. T11-12: No focal disc protrusion, central canal stenosis, or neural foraminal compromise. On the sagittal sequences no focal disc protrusion or central canal stenosis are suggested at the T12-L1 or L1-2 levels. L2-L3: No focal disc protrusion, central canal stenosis, or neural foraminal compromise. Mild degenerative facet arthropathy. L3-L4: No focal disc protrusion, central canal stenosis, or neural foraminal compromise. Moderate degenerative facet arthropathy. L4-L5: There is a new small broad-based disc protrusion slightly eccentric to the right elevating the posterior longitudinal ligament and tracking slightly caudal to the L5 corner. This indents the ventral aspect of the thecal sac but the neural foramina remain grossly patent. Moderate degenerative facet arthropathy and the disc protrusion contribute to bilateral recess stenosis. L5-S1: There is slight progression of disc desiccation with a right paramedian annular tear and a chronic disc bulge eccentric to the right grossly stable in extent. Neural foramina are stable in caliber without overt mass effect upon the exiting L5 nerve roots. There is mild degenerative facet arthropathy. No significant abnormality of vertebral body marrow signal has developed in the interim. A chronic fat intensity signal lesion in the L2 body is consistent with incidental lipoma versus hemangioma. Visualized portions of the conus are unremarkable. No paraspinal soft tissue mass apparent. Procedure Note Joseph Guadarrama MD - 10/08/2017 TECHNIQUE: Exam performed on a 1.5 Destinee high-field MRI scanner. SagittalT1, T2 and STIR, axial T1 and T2 sequences were obtained. FINDINGS: Comparison is made with the prior MR of 06/22/2011. T11-12: No focal disc protrusion, central canal stenosis, or neuralforaminal compromise. On the sagittal sequences no focal disc protrusion or central canalstenosis are suggested at the T12-L1 or L1-2 levels. L2-L3: No focal discprotrusion, central canal stenosis, or neural foraminal compromise. Milddegenerative facet arthropathy. L3-L4: No focal disc protrusion, central canal stenosis, or neuralforaminal compromise. Moderate degenerative facet arthropathy. L4-L5: There is a new small broad-based disc protrusion slightly eccentricto the right elevating the posterior longitudinal ligament and trackingslightly caudal to the L5 corner. This indents the ventral aspect of thethecal sac but the neural foramina remain grossly patent. Moderatedegenerative facet arthropathy and the disc protrusion contribute tobilateral recess stenosis. L5-S1: There is slight progression of disc desiccation with a rightparamedian annular tear and a chronic disc bulge eccentric to the rightgrossly stable in extent. Neural foramina are stable in caliber withoutovert mass effect upon the exiting L5 nerve roots. There is milddegenerative facet arthropathy. No significant abnormality of vertebral body marrow signal has developedin the interim. A chronic fat intensity signal lesion in the L2 body isconsistent with incidental lipoma versus hemangioma. Visualized portionsof the conus are unremarkable. No paraspinal soft tissue mass apparent. IMPRESSION: Small broad-based/right paramedian L4-5 disc protrusion. Chronic L5-S1 disc bulge with slight progression of disc desiccation andevolution of right paramedian annular tear since 2010. POS - [id number] us Baldomero ALSTONG MR XSPECIALTY Final Result documented in this encounter Visit Diagnoses Diagnosis Degenerative lumbar disc Weakness Other malaise and fatigue Degenerative lumbar disc Weakness Other malaise and fatigue documented in this encounter Care Teams Kick Press Setter Relationship Specialty Start Date End Date Baldomero Edwards DO [address] [address] PCP - General 08/22/17 Baldomero Edwards DO 179 [facility] [place] [address] Historical LMR Provider 06/03/17 08/26/21 Fallon Adams CREDIT DIRECTOR [address] [place] [address] [email or web address] Historical LMR Provider 06/03/17 Bisi Maldonado NP 21 [place] [address] [email or web address] Historical LMR Provider 06/03/17 2 Jj Quinteros MD 22 [facility], 2nd [place] [address] Historical LMR Provider 06/03/17 08/26/21 Milly Carcamo NP [address] [place] [address] Historical LMR Provider 06/03/17 2 Mauricio Hahn MD [address] [address] [email or web address] Historical LMR Provider 06/03/17 08/26/21 documented as of this encounter Additional Source Comments The information contained in this document represents components of the legal health record. It is not the complete legal health record.[facility]
== END 2025-05-04 11:49 | disposition home or self-care (01) ==
LOC: HO.HSM 10:48
PROVIDERS: PCP Internal Medicine; Visit Provider Psychiatry & Neurology Neurology
DX: G24.4 Idiopathic orofacial dystonia (principal)

== ENCOUNTER 2025-06-15 15:59 | Outpatient (AMB) | payer MEDICAID, SELFPAY ==
--- NOTE | 2025-06-15 16:04 | MHC.OFFVIS ---
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 She was treated with SSRIs for decades for depression but did not have any expsoure to antipsychotics or metoclopromide developed facial movements on the right side around 2021. Slowly it was getting worse. Sometimes, it led to right eye closure. There was no known trigger. She has been seen at [facility] and had tried baclofen and valium with no benefit noted. She received first Botox treatment in December of 2023. She was here after a few weeks of Botox. She has started to feel a little bit of problem on the left side too. [facility] Medical History Anxiety Depression Family History Mother No problems noted. Father No problems noted. 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 Physical Exam Neuro Other: Mental Status: Alert and oriented to person, place, and time. Normal attention. Normal spontaneous speech, fluency, and comprehension. No obvious issues with mood and memory. Affect is appropriate. Cranial Nerves: CN II: Visual courtney full to confrontation, visual acuity intact. CN III, IV, : Pupils equal, round, reactive to light and accommodation. Extraocular movements are normal. CN V: Facial sensation is normal. CN VII: There was mild flattening of right cheek. At the same time right upper lip muscles are slightly twitching. CN VIII: Hearing intact to bedside conversation is normal. CN IX, X: Palate elevates symmetrically. CN XI: Shoulder shrug and head turn symmetrical. CN XII: Tongue midline without atrophy or fasciculations. Gait and Station: No obvious gait abnormality. No ataxia or instability. Extrapyramidal: Full facial expressions and blinking. No rigidity. Movements are appropriate with no tremor or abnormality. Speech: Normal; no dysarthria or tremor. Assessment & Plan Assessment & Plan (1) Meige syndrome (blepharospasm with oromandibular dystonia): Comment: Meds tried: Baclofen, valium, trihexyphenidyl MRI brain WO at [facility] in February 2025: No sig change MRI brain WO at [facility] in January 2023: Mild non specific WM changes, small pineal cyst. 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 She after few weeks of Botox treatment. It worked well for blepharospasm and also for the facial movements but there was slight flattening of right cheek. While right upper lip muscle was still twitching. This would help to determine next dose of Botox. Coding Level of Care Code Est Pt Level 4 (80658) Diagnoses Meige syndrome (blepharospasm with oromandibular dystonia) G24.4
--- OUTSIDE RECORDS SUMMARY | 2025-06-15 20:05 | XMS_ITS | Encounter Summary ---
Author Organization [facility] Address [address] [place] [address] Phone Care Team Providers Care Level Glass Forming Machine Operator Name Role Phone Baldomero Edwards DO Unavailable Fallon Adams ENGINE REPAIRER SERVICE Unavailable [phone] Bisi Maldonado ENGINE REPAIRER SERVICE Unavailable Jj Quinteros MD Unavailable Milly Carcamo ENGINE REPAIRER SERVICE Unavailable [phone] Mauricio Hahn MD Unavailable [phone] Baldomero Edwards DO Primary Care Provider [phone] Encounter Details Date Type Department Care Team (Late st Contact Info) Description 09/27/2017 Ancillary Orders Virtual Department 30 [place] [address] Baldomero Edwards DO 179 [facility] [place] [address] [email or web address] Lumbar disc [...] fatigue documented in this encounter Care Teams Level Glass Forming Machine Operator Relationship Specialty Start Date End Date Baldomero EdwardsDO [address] [address] PCP - General 08/22/17 Jerry Baldomero DO Johnathan 179 [facility] [place] [address] Historical LMR Provider 06/03/17 08/26/21 Fallon Adams NP [address] [place] [address] Historical LMR Provider 06/03/17 Bisi Maldonado NP 21 [place] [address] [email or web address] Historical LMR Provider 06/03/17 2 Jj Quinteros MD 22 [facility] 2nd [place] [address] Historical LMR Provider 06/03/17 08/26/21 Milly Carcamo NP [address] [place] [address] Historical LMR Provider 06/03/17 2 Mauricio Hahn MD [address] [address] (work) [email or web address] Historical LMR Provider 06/03/17 08/26/21 documented as of this encounter Additional Source Comments The information contained in this document represents components of the legal health record. It is not the complete legal health record.[facility]
--- OUTSIDE RECORDS SUMMARY | 2025-06-15 20:05 | XMS_ITS | Encounter Summary ---
Author Organization [facility] Address [address] [place] [address] Phone Care Team Providers Care Pharmacy Specialist Name Role Phone Baldomero Edwards DO Unavailable Fallon Adams SLIP MAKER Unavailable [phone] Bisi Maldonado SLIP MAKER Unavailable [phone] Jj Quinteros MD Unavailable [phone] Milly Carcamo SLIP MAKER Unavailable Mauricio Hahn MD Unavailable [phone] Baldomero Edwards DO Primary Care Provider [phone] Encounter Details Date Type Department Care Team (Late st Contact Info) Description 09/27/2017 Procedure Pass [address] [address] Social History Tobacco Use Types Packs/Day Years [...] on filedocumented in this encounter Care Teams Pharmacy Specialist Relationship Specialty Start Date End Date Baldomero Edwards DO [address] [address] PCP - General 08/22/17 Baldomero Edwards DO [address] [place] [address] [place] [address] Historical LMR Provider 06/03/17 08/26/21 Fallon Adams SLIP MAKER [address] [place] [address] Historical LMR Provider 06/03/17 Bisi Maldonado SLIP MAKER 21 [place] [address] [email or web address] Historical LMR Provider 06/03/17 2 Jj Quinteros MD [address] [facility], 2nd [place] [address] Historical LMR Provider 06/03/17 08/26/21 Milly Carcamo NP [address] [place] [address] Historical LMR Provider 06/03/17 2 Mauricio Hahn MD [address] [address] Historical LMR Provider 06/03/17 08/26/21 documented as of this encounter Additional Source Comments The information contained in this document represents components of the legal health record. It is not the complete legal health record.[facility]
--- OUTSIDE RECORDS SUMMARY | 2025-06-15 20:05 | XMS_ITS | Encounter Summary ---
Author Organization [facility] Address [address] [place] [address] Phone Care Team Providers Care Hotel Desk Clerk Name Role Phone Baldomero Edwards DO Unavailable Fallon Adams CEO AND CO FOUNDER Unavailable [phone] Bisi Maldonado CEO AND CO FOUNDER Unavailable Jj Quinteros MD Unavailable [phone] Milly Carcamo CEO AND CO FOUNDER Unavailable Mauricio Hahn MD Unavailable Baldomero Edwards DO Primary Care Provider [phone] Encounter Details Date Type Department Care Team (Late st Contact Info) Description 06/28/2020 Ancillary Orders Virtual Department 30 [place] [address] Senait Tim PA [address] [place] [address] [place] [address] Pain in right wrist Social History Tobacco [...] forearm documented in this encounter Care Teams Hotel Desk Clerk Relationship Specialty Start Date End Date Baldomero Edwards DO [address] [address] PCP - General 08/22/17 Baldomero Edwards DO 179 [facility] [place] [address] Historical LMR Provider 06/03/17 08/26/21 Fallon Adams NP 30 [place] [address] [email or web address] Historical LMR Provider 06/03/17 Bisi Maldonado NP [address] [place] [address] [email or web address] Historical LMR Provider 06/03/17 2 Jj Quinteros MD 22 [facility] [place] [address] Historical LMR Provider 06/03/17 08/26/21 Milly Carcamo NP [address] [place] [address] Historical LMR Provider 06/03/17 2 Mauricio Hahn MD 22 [facility] [address] [place] [address] Historical LMR Provider 06/03/17 08/26/21 documented as of this encounter Additional Source Comments The information contained in this document represents components of the legal health record. It is not the complete legal health record.[facility]
--- OUTSIDE RECORDS SUMMARY | 2025-06-15 20:05 | XMS_ITS | Clinical Summary ---
Author Organization [employer] Address [address] [facility] [address] [place] [address] Care Team Providers Care Marine Service Manager Name Role Phone Unavailable Primary Care Provider [...]
--- OUTSIDE RECORDS SUMMARY | 2025-06-15 20:05 | XMS_ITS | Encounter Summary ---
Author Organization [facility] Address [address] [place] [address] [place] [address] Phone Care Team Providers Care Commercial Coordinator Name Role Phone Fallon Adams Khalif ELECTRONIC PREPRESS SYSTEM OPERATOR Unavailable [phone] Baldomero Edwards DO Primary Care Provider [phone] Encounter Details Date Type Department Care Team (Late st Contact Info) Description 06/10/2024 Procedure Pass [facility] - [facility], [facility] [address] [place] [address] Social History Tobacco Use Types Packs/Day Years [...] on filedocumented in this encounter Care Teams Commercial Coordinator Relationship Specialty Start Date End Date Baldomero Edwards DO 30 [place] [address] [email or web address] PCP - General 08/22/17 Fallon Adams NP 30 [place] [address] [email or web address] Historical LMR Provider 06/03/17 documented as of this encounter Additional Source Comments The information contained in this document represents components of the legal health record. It is not the complete legal health record.[facility]
--- OUTSIDE RECORDS SUMMARY | 2025-06-15 20:05 | XMS_ITS | Clinical Summary ---
Author Organization [facility] Address [address] [place] [address] Phone Care Team Providers Care Peoplesoft Financials Consultant Name Role Phone Fallon Adams Khalif HOUSE SHORER Unavailable [phone] Baldomero Edwards DO Primary Care Provider [phone] Allergies No known active allergies Medications valACYclovir [...] only OCP; LNG may be better option exterminator. Wants to avoid possible weight gain on [...] DENSITY: There are scattered fibroglandular densities. POS [id number] Narrative 11/11/2018 1:33 PM EDT Bilateral full-field [...] DENSITY: There are scattered fibroglandular densities. POS [id number] Fallon Adams HOUSE SHORER IMG MG EXAMS Final Result * Pap Smear (10/21/2018 12:00 AM EST) 10/21/2018 10/22/2018 10: 57 AM EST Narrative SEE NARRATIVE - 10/28/2018 3:53 [place] [address] Bpo Specialist: Taina Ibarra MD DIRECTOR OF AUTOMATION Cytology Report FINAL DIAGNOSIS A. PAP SMEAR [...] 52, 56, 58, 59, 66, 68) by [employer] HR-HPV analysis. Clinical correlation is advised. This HPV test was performed at [facility], [address] [place] [address]. This test has been FDA approved for [facility] cervical cytology specimens. The accuracy and precision of this test for all other specimen sources has been verified in the Cytopathology Laboratory of the [facility] and has not been cleared or approved by the U.S. Food and Drug Administration. Clinical correlation is advised. CLINICAL HISTORY Date of Last Menstrual Period: 10/13/2018 Other Clinical Conditions: Screening Pap SPECIMEN SOURCE A: PAP SMEAR (SUREPATH) CE Patient Name: ANAID JOHNSON : 1975 (Age: 43) Sex: F Institution: [facility] Location: [facility] Date of Collection: 10/21/2018 Date of Reported: 10/28/2018 15:53 Results to: Fallon Adams MSN, BS Fallon Adams HOUSE SHORER CYTOLOGY ORDERABLES Final Resu lt SEE NARRATIVE from Last 3 Months or Most Recently Relevant to Health Maintenance Insurance [facility] NON NSPG PCP SILVER CL[place]ITY CONNECTORCARE [facility] NON NSPG PCP SILVER CLARITY CONNECTORCARE [employer] NON NSPG PCP SILVER CLARITY CONNECTORCARE [facility] NON NSPG PCP SILVER CLARITY CONNECTORCARE [facility] NON NSPG PCP SILVER CLARITY CONNECTORCARE [employer] NON NSPG PCP SILVER CLARITY CONNECTORCARE WELL[employer] NON NSPG PCP SILVER CLARITY CONNECTORCARE [employer] NON NSPG PCP [place] [address] [place] [address] NON NSPG PCP [employer] CONNECTORCARE Care Teams Peoplesoft Financials Consultant Relationship Specialty Start Date End Date Baldomero Edwards DO 30 [place] [address] [email or web address] PCP - General 08/22/17 Fallon Adams NP 30 [place] [address] [email or web address] Historical LMR Provider 06/03/17 Additional Source Comments The information contained in this document represents components of the legal health record. It is not the complete legal health record.[facility]
--- OUTSIDE RECORDS SUMMARY | 2025-06-15 20:06 | XMS_ITS | Encounter Summary ---
Author Organization [facility] Address [address] [place] [address] Phone Care Team Providers Care Etymology Teacher Name Role Phone Baldomero Edwards DO Unavailable Fallon Adams AUTO BODY MECHANIC APPRENTICE Unavailable [phone] Bisi Maldonado AUTO BODY MECHANIC APPRENTICE Unavailable [phone] Jj Quinteros MD Unavailable Milly Carcamo AUTO BODY MECHANIC APPRENTICE Unavailable Mauricio Hahn MD Unavailable [phone] Baldomero Edwards DO Primary Care Provider [phone] Encounter Details Date Type Department Care Team (Latest Contact Info) Description 07/06/2020 Transcribe Orders Virtual Department 30 [place] [address] Senait Tim PA [address] [place] [address] [place] [address] Right wrist pain (Primary Dx) Social History [...] PM EST No significant bony abnormality. POS [id number] Narrative 07/06/2020 4:15 PM EST Frontal, lateral, [...] apparent. IMPRESSION: No significant bony abnormality. POS [id number] Senait VALENCIA IMG XR UPPER EXTREMITY Anika l Result documented in this encounter Visit Diagnoses Diagnosis Right wrist pain- Primary Pain in joint, forearm Right wrist pain Pain in joint, forearm documented in this encounter Care Teams Etymology Teacher Relationship Specialty Start Date End Date Baldomero Edwards DO 22 [facility] [address] [place] [address] PCP - General 08/22/17 Baldomero Edwards DO 179 [place] [address] Historical LMR Provider 06/03/17 08/26/21 Fallon Adams NP [address] [place] [address] [email or web address] Historical LMR Provider 06/03/17 Bisi Maldonado NP 21 [place] [address] [email or web address] Historical LMR Provider 06/03/17 2 Jj Quinteros MD [address] [address] Historical LMR Provider 06/03/17 08/26/21 Milly Carcamo NP [address] [place] [address] Historical LMR Provider 06/03/17 2 Mauricio Hahn MD [address] [address] [email or web address] Historical LMR Provider 06/03/17 08/26/21 documented as of this encounter Additional Source Comments The information contained in this document represents components of the legal health record. It is not the complete legal health record.[facility]
--- OUTSIDE RECORDS SUMMARY | 2025-06-15 20:06 | XMS_ITS | Data Portability ---
Author Organization [facility], Telehealth Patient Home Address [address] [place] [address] Assessment Encounter Date Assessment Date Assessment LastModified by Organization Details LastModified Time 02/26/2023 02/26/2023 [id number] [place] [id number] (DUNGEON MASTER) : RYAN LOW MUST MEET 2 OF [...] COVERED Not available 02/26/2023 09:08:56 10/11/2023 10/11/2023 [id number] [place] [id number] (DUNGEON MASTER) : RYAN LOW MUST MEET 2 OF [...] Not available 10/11/2023 16:52:35 02/12/2025 02/12/2025 Patient presente d for medication refill. Patient tolerating medication well at current dose without adverse effects. Refilled as below. Discussed plan with patient, who expressed understanding. Follow up as noted below. Not available 02/12/2025 12:10:32 03/15/2025 03/15/2025 [id number] [place] [id number] (DUNGEON MASTER) MDM MODERATE MUST MEET 2 OUT OF 3 ELEMENTS: PROBLEMS, DATA OR RISK ELEMENT 1: PROBLEMS ADDRESSED 1 OR MORE CHRONIC ILLNESS WITH EXACERBATION OR 2 OR MORE STABLE CHRONIC ILLNESSES OR 1 UNDIAGNOSED NEW PROBLEM OR 1 ACUTE ILLNESS W/SYMPTOMS OR 1 ACUTE COMPLICATED INJURY ELEMENT 2: DATA MUST MEET 1 OF 3 CATEGORIES CATEGORY 1: REVIEW OF PRIOR EXTERNAL NOTES, REVIEW OF RESULTS, ORDERING OF EACH TEST, ASSESSMENT REQUIRING INDEPENDENT HISTORIAN OR CATEGORY 2: INDEPENDENT INTERPRETATION OF TESTS BY ANOTHER PHYSICIAN OR SPECIALIST OR CATEGORY 3: DISCUSSION OF MGT OR TEST INTERPRETATION W/EXTERNAL PHYSICIAN OR SPECIALIST ELEMENT 3: RISK RISK OF COMPLICATIONS AND/OR MORBIDITY OR MORTALITY OF PATIENT MANAGEMENT PROVIDER MUST THOROUGHLY DOCUMENT EACH ELEMENT THAT IS COVERED Not available 03/15/2025 15:22:39 Plan of Treatment Reminders Order Date Submit Date Provider Last Modified By Organization Details Last Modified Time Details Appointments FOLLOW UP 15 2024 11:30A M DR ROMAN Not available Not available Not available Lab CMP, serum or plasma 2022 023 ADAN Not available 12/27/2022 12:06:24 magnesium , serum or plasma 2022 023 [email or web address] Not available 12/26/2022 14:31:34 Referral None recorded. Procedures None recorded. Surgeries None recorded. Imaging MR, angiogram , head, w/o contrast 2024 025 [email or web address] 10 [facility], [address] [place], [address], 02/23/2025 09:14:48 MRI, brain, w/o contrast 2022 023 [email or web address] [facility], [address] [place], [address], 01/04/2023 08:39:28 Medication Orders hyoscyami ne 0.125 mg sublingua l tablet 2024 025 [facility], [address] [place] [address], [address], 03/15/2025 15:26:30 sertralin e 100 mg tablet 2024 025 [facility], [address] [place] [address], [address], 02/12/2025 12:13:43 bupropion HCl SR 150 mg tablet,12 hr sustained -release 2024 025 [facility], [address] [place] [address], [address], 02/12/2025 12:13:43 Valium 5 mg tablet 2022 023 [facility], [address] [place] [address], [address], 02/12/2025 12:12:06 baclofen 10 mg tablet 2022 023 [email or web address] [facility], [address] [place] [address], [address], 03/15/2025 14:51:27 Patient TargetsNo targets recorded. Patient Instructions Encounter Date Encounter Id Patient Instructions Last Modified By Organization Details Last Modified Time 03/15/2025 [id number] irritable bowel syndrome: care instructions [email or web address] Not available 03/15/2025 15:26:27 Reason for Referral None Reported. Results Created Date Observation Date Name Description Value Unit Range Abnormal Flag Note LastModifiedBy Organization Detail LastModifiedTime 02/14/20 23 02/08/2023 MRI, brain , w/wo contr ast No observ ation record ed. [email or web address] [place] [address] (Medical Records) [address] [place] [address], [address], 03/12/2023 13:52:46 02/19/20 25 02/18/2025 CT, abdom en + pelvi s, w/ contr ast No observ ation record ed. [email or web address] [place] [address] (Medical Records) [address] [facility], [place], [address], 02/18/2025 11:22:12 03/04/20 25 03/04/2025 MRI, head, w/o contr ast No observ ation record ed. [email or web address] (Medical Records) [address] [facility], [place], [address], 03/09/2025 22:08:02 Result Notes None recorded. Problems Name Problem SNOMED Code Status Onset Date Resolution Date Notes Provider Name and Address Organization Details Recorded Time Dysmenorr hea 829912258 Active 2018 HUYEN León [address] [place] [address], [phone], [facility] 9 10:48:19 Tobacco user 293522500 Active 2018 HUYEN León [address] [place] [address], [phone], [facility] 9 10:48:24 Anxiety 28343376 Active 2018 Baldomero Roman DO [address] [place] [address], [address], [facility] 5 17:00:46 Blepharos pasm of right eyelid 218942579522 62942 Active 2022 Baldomero Roman DO [address] [place] [address], [address], [facility] 3 14:21:57 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 Procedures Surgical History Date Name Laterality Status Provider Name and Address Organization Details Recorded Time 10/22/19 19 Date of Last Pap Smear completed November [address], [address], [facility] 10/22/2018 10:51:03 ligation of bilateral fallopian tubes completed November [address], [address], [facility] 10/22/2018 10:48:58 extraction of wisdom tooth completed November [address], [address], [facility] 10/22/2018 10:49:08 Imaging Results None recorded. Procedure [...] MOUTH THREE TIMES A DAY WITH FOOD 03/15 completed Not Available Not Available Not Available hydrocodone 5 mg-acetamin ophen 325 mg [...] TABLET BY MOUTH EVERY 6 HOURS NEEDED 03/15 completed Not Available Not Available Not Available acetaminoph en ER 650 mg tablet,exte nded release TAKE ONE TABLET BY MOUTH EVERY 8 HOURS NEEDED FOR MILD PAIN FOR UP TO 10 DAYS. DO NOT CRUSH, CHEW OR SPLIT. 03/15 completed Not Available Not Available Not Available lorazepam 0.5 mg tablet TAKE ONE TABLET BY MOUTH EVERY DAY NEEDED active Not Available Not Available No t Available baclofen 10 mg tablet TAKE ONE TABLET BY MOUTH THREE TIMES A DAY 03/15 completed Not Available Not Available Not Available cephalexin 500 mg capsule TAKE ONE CAPSULE BY MOUTH EVERY 8 HOURS 03/15 completed Not Available Not Available Not Available hyoscyamine 0.[address] ONE TABLET UNDER THE TONGUE EVERY 6 HOURS NEEDED active Not Available [...] TO MODERATE PAIN.FOR UP TO 10 DAYS 03/15 completed Not Available Not Available Not Available trihexyphen idyl 2 mg tablet TAKE [...] DAY FOR 30 SECONDS THEN SPIT OUT 03/15 completed Not Available Not Available Not Available bupropion HCl 150 mg tablet,12 hr [...] Updated DateTime 3 152.4 cm 30.3 kg/m2 32141.8 2 g 95 /min 97 % 97 % 140/80 mm[Hg] Acacia Manuel [facility] 3 13:50:05 Date Recorded Body height Body mass index (BMI) Body weight Heart rate Oxygen saturation Oxygen saturation in Arterial blood by Pulse oximetry Systolic And Diastolic Provider Name and Address Organization Details Last Updated DateTime 5 165.1 cm 25.8 kg/m2 46360.8 2 g 98 /min 88 % 88 % 128/78 mm[Hg] Acacia Jackson [facility] 5 11:56:43 Date Recorded Body height Body mass index (BMI) Body weight Oxygen saturation Oxygen saturation in Arterial blood by Pulse oximetry Heart rate Systolic And Diastolic Provider Name and Address Organization Details Last Updated DateTime 5 165.1 cm 20 kg/m2 65023.8 g 97 % 97 % 75 /min 134/82 mm[Hg] Taina Kothari [facility] 5 14:55:50 Social History Question Answer Notes LastModified by Organizat ion Details LastModified Time Tobacco Smoking Status Current Every Day Smoker Not Available [employer] 06/21/2020 03:36:24 What Was The Date Of Your Most Recent Tobacco Screening? 03/15/2025 Information not available 03/15/2025 How Much Tobacco Do You Smoke? 0.5 PPD Information not available 03/15/2025 Sex: Unknown Functional Status Question Answer Note LastModified by Organization D etails LastModified Time Do you or have you ever used any other forms of tobacco or nicotine? No [email or web address] Information not available 12/26/2022 Mental Status None [...] tetanus toxoid, unspecified formulation 03/01/2017 completed Elida Bell [facility] 10/27/2018 16:45:59 Past Encounters Encounter ID Performer Location Encounter Start Date Encounter Closed Date Diagnosis/Indication Diagnosis SNOMED-CT Code Diagnosis ICD10 Code Diagnosis IMO Codes Diagnosis Note [id number] [address] [place] [address] 10/28/2018 14:17:18 10/28/2018 14:33:04 Acute sinusitis 48258602 J01.90 Tobacco user 625338676 Z 72.0 Anxiety 54221124 F41.9 [id number] Baldomero Roman [facility] [address] [place] [address] 11/10/2019 15:57:53 11/16/2019 16:41:18 Pneumonia 136126962 J18.9 Patient has been having constant dry cough, nasal congestion , post-nasal drip for the past two weeks She has a hx of smoking She is no longer having fevers and her other symptoms have been improving gradually She has not been exposed to anyone with COVID-19 and states she has kept herself self-quara ntined Patient most likely having asthma/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 on in the setting of [...] and agrees to this plan Tobacco user 583846974 Z 72.0 as above [id number] Baldomero Roman [facility] [address] [facility],[place] [address] [address] 12/01/2019 08:52:42 12/01/2019 09:43:57 Adult health examination 417476016 Z00.01 Active or passive immunization 406678621 Z23 Cellulitis 711357147 L03 .90 from contact dermatitis Contact dermatitis 40367 004 L25.9 Anxiety 43051203 F41.9 Depressive disorder 3548 9007 F32.9 Dysmenorrhea 876993616 N 94.6 [id number] Baldomero Roman [facility] [address] [facility],[place] [address] [address] [facility] [place] [address] 06/28/2020 15:28:42 06/28/2020 16:02:25 Pain of right wrist 2613408073 68483 M25.531 need XRs will fu afterwards will use thumb spica brace in the meantime [id number] Baldomero Roman [facility] [address] [facility],[place] [address] 07/06/2020 13:50:20 07/06/2020 16:57:42 Pain of right wrist 8409195027 19603 M25.531 need XRs again will fu afterwards will go get new brace in meantime with order for proper fit [id number] Baldomero Roman [facility] [address] [facility],[place] [address] 08/02/2021 08:28:32 08/02/2021 14:56:40 Anxiety 37398891 F41.9 stable and is not having any issues [id number] Baldomero Roman [facility] [address] [facility],[place] [address] 12/26/2022 13:43:34 12/26/2022 14:38:46 Blepharospasm of right eyelid 5244518253 9034574 G24.5 [id number] Baldomero Acevedo [facility] [address] [facility],[place] [address] 02/26/2023 07:56:59 02/26/2023 10:31:30 Blepharospasm of right eyelid 2167116101 0574024 G24.5 see below 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 7266158760 0749731 G51.31 will see if we can have someone else saee her for botoxx tx ?genet Irritable bowel syndrome 40110838 K58.9 1927952 Health Concerns Section Related Observation LastModified by Organization Detai ls LastModified Time None Recorded Concern Status LastModified by Organization Details LastModified Time None Recorded Advance Directives Directive None Recorded Payers Insurance Date Sequence Insurance Name Policy Number Policy Oreilly Covered Member ID Oreilly Member ID Guarantor Name 02/12/2025 1 [facility] (O) [id number] Luz Duran [id number] Luz Duran 06/01/2025 1 [place]: [facility] PL[facility] Luz Duran [id number] Luz Duran Notes Date Note Type Note Provider Name a nd Address Organization Details Recorded Time 12/26/2022 text/html ROS as noted in the HPI here for c/o r eyelid twitching and relates that she had it a year ago and has been gradually getting worse does use computer a lot Baldomero Roman DO [address] [place], [address], [facility] 12/26/2022 14:24:42 02/26/2023 text/html ROS as noted in the HPI patient is evaluated via tele/video assessment per patient consentduring current pandemic still having a great deal of eye twitching on right eyelid extending down to corner of her mouth so much that she is talking diff because of itreviewed mri w pt which is neg Baldomero Roman DO [address] [place], [address], [facility] 02/26/2023 10:16:13 10/11/2023 text/html ROS as noted in the HPI patient is evaluated via tele/video assessment per patient consentduring current pandemic 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 and relates that she is very scared and upset because it will get worsetold no cure and will progress Baldomero Roman, [address] [place], [address], [facility] 10/11/2023 17:06:28 02/12/2025 text/html relates her symptoms are getting bad againhas a signif droop of right facial musclesspeech is getting affectedalso eyelid spasm is coming back also relates that she is getting stupid forgetting things, getting almost dyslexic forgetting numbers hard time seeing at night has appt with dr tamara Roman, [address] [place], [address], [facility] 02/12/2025 12:17:52 03/15/2025 text/html ROS as noted in the HPI here for rechk and is doing about the same reviewed the MRI results and thankhfully has no evid of ds except for sm vssl ischemia Baldomero Roman, [address] [place], [address], [facility] 03/17/2025 08:43:23 OBGyn Episode No OBEpisode recorded.
--- OUTSIDE RECORDS SUMMARY | 2025-06-15 20:06 | XMS_ITS | Encounter Summary ---
Author Organization [facility] Address [address] [place] [address] Phone Care Team Providers Care Landscaping Manager Name Role Phone Baldomero Edwards DO Unavailable Fallon Adams SPIRITUAL MINISTER Unavailable [phone] Bisi Maldonado SPIRITUAL MINISTER Unavailable Jj Quinteros MD Unavailable Milly Carcamo SPIRITUAL MINISTER Unavailable [phone] Mauricio Hahn MD Unavailable [phone] Baldomero Edwards DO Primary Care Provider [phone] Encounter Details Date Type Department Care Team (Late st Contact Info) Description 09/27/2017 Ancillary Orders Virtual Department [address] [place] [address] Baldomero Edwards DO [address] [facility] [place] [address] Degenerative lumbar disc; Weakness Social History Tobacco [...] paramedian annular tear since 2010. POS - [id number] Narrative 10/08/2017 3:13 PM EST TECHNIQUE: Exam [...] paramedian annular tear since 2010. POS - [id number] us Baldomero ALSTONG MR XSPECIALTY Final Result documented in this encounter Visit Diagnoses Diagnosis Degenerative lumbar disc Weakness Other malaise and fatigue Degenerative lumbar disc Weakness Other malaise and fatigue documented in this encounter Care Teams Landscaping Manager Relationship Specialty Start Date End Date Baldomero Edwards DO [address] [address] PCP - General 08/22/17 Baldomero Edwards DO [address] [facility] [place] [address] Historical LMR Provider 06/03/17 08/26/21 Fallon Adams SPIRITUAL MINISTER [address] [place] [address] [email or web address] Historical LMR Provider 06/03/17 Bisi Maldonado NP [address] [place] [address] [email or web address] Historical LMR Provider 06/03/17 2 Jj Quinteros MD [address] [facility] [place] [address] Historical LMR Provider 06/03/17 08/26/21 Milly Carcamo NP [address] [place] [address] Historical LMR Provider 06/03/17 2 Mauricio Hahn MD [address] [address] [email or web address] Historical LMR Provider 06/03/17 08/26/21 documented as of this encounter Additional Source Comments The information contained in this document represents components of the legal health record. It is not the complete legal health record.[facility]
== END 2025-06-15 16:16 | disposition home or self-care (01) ==
LOC: HO.HSM 16:00
PROVIDERS: PCP Internal Medicine; Visit Provider Psychiatry & Neurology Neurology
DX: G24.4 Idiopathic orofacial dystonia (principal)
CPT/HCPCS: 99214

== ENCOUNTER → 2025-06-15 15:59 | Outpatient (BNVA) | payer MEDICAID, SELFPAY | PROVIDERS: PCP Internal Medicine; Visit Provider Psychiatry & Neurology Neurology | DX: G24.4 Idiopathic orofacial dystonia (principal) | CPT/HCPCS: 99212 ==

== ENCOUNTER 2025-08-10 13:23 | Outpatient (AMB) | payer MEDICAID, SELFPAY ==
--- NOTE | 2025-08-10 13:27 | A.OFFVIS_ITS ---
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 She was treated with SSRIs for decades for depression but did not have any expsoure to antipsychotics or metoclopromide developed facial movements on the right side around 2021. Slowly it was getting worse. Sometimes, it led to right eye closure. There was no known trigger. She has been seen at [facility] and had tried baclofen and valium with no benefit noted. She received first Botox treatment in December of 2023. She is presenting for a scheduled Botox injection for facial twitching. She reports that over the past two weeks, her facial twitching has worsened, particularly at night, with the right side being more affected. Her condition has been diagnosed as hemifacial spasm and blepharospasm. The patient also reports a new complaint of a sharp, lightning bolt sensation that shoots through her head, lasting for about a second and described as very painful. While this has occurred sporadically every few months in the past, it has been happening once to twice a day for the past week, localized to the right side of her head. [facility] Medical History Anxiety Depression Family History Mother No problems noted. Father No problems noted. Social History Alcohol intake: current Alcohol intake frequency: holidays/special occasions only Substance Use Type: Marijuana Current occupational status: employed Current occupation: [employer]- right handed Review of Systems Narrative - Neurological: Reports worsening facial twitching, more prominent on the right side and at night for the past two weeks. - She also reports a new onset of daily, sharp, painful lightning bolt sensations in her head, lasting for a second and localized to the right side. - Psychiatric: Reports stress related to the holidays and finances. Physical Exam Neuro Other: Mental Status: Alert and oriented to person, place, and time. Normal attention. Normal spontaneous speech, fluency, and comprehension. Cranial Nerves: CN II: Visual courtney full to confrontation, visual acuity intact. CN III, IV, : Pupils equal, round, reactive to light and accommodation. Extraocular movements are normal. CN V: Facial sensation is normal. CN VII: Facial movements symmetrical. CN VIII: Hearing intact to bedside conversation is normal. CN IX, X: Palate elevates symmetrically. CN XI: Shoulder shrug and head turn symmetrical. CN XII: Tongue midline without atrophy or fasciculations. Extrapyramidal: Full facial expressions and blinking. No rigidity. Movements are appropriate with no tremor or abnormality. Speech: Normal; no dysarthria or tremor. Office Procedures Botulinum toxin Injection Details: Indication:?[Chronic migraine / Cervical dystonia / Focal spasticity /Blepharospasm / Hemifacial spasm] Preparation:?Botox? (onabotulinumtoxinA) reconstituted with 0.9% preservative- free normal saline to a final concentration of [e.g., 100 units/2.5 mL]. Consent:?Risks (e.g., localized weakness, ptosis, injection site pain, flu-like symptoms), benefits, and alternatives were discussed in detail. The patient understood and gave verbal and written informed consent. Procedure: The patient was positioned comfortably. Target muscle groups were identified based on clinical examination and functional anatomy. The skin over the injection sites was cleaned with alcohol. No topical or local anesthetic was used unless otherwise stated. Botulinum toxin was injected using a sterile [30/27/25]-gauge needle into the muscles/sites as per standard protocol (Sites indicated on the diagram): Botox for Blepharospasm Total Dose: Orbicularis oculi Frontalis Unit Nurse supercilious Botox for Hemifacial Spasm Total dose: Frontalis Orbicularis oculi Levator labi superiorsLevator labi superioris The patient tolerated the procedure well with no immediate complications. No significant bleeding, hematoma, or adverse reaction noted. Bandages applied as needed. 73036 - Facial Nerve Procedure code (CPT) selection complete Office Meds onabotulinumtoxinA 100 unit solution for injection Performing Provider: Ramez Sahu MD Performing Location: [facility] Neurology and Sleep-Hol Administered by: Ramez Sahu MD on 08/10/25 13:34 Dose Route Admin Location Dispensed Lot Number Expiration Date [facility] [employer] 100 unit IM 100 units [id number] [employer] /BOTOX Total Dispensed Waste 100 units 0 % Assessment & Plan Assessment & Plan (1) Meige syndrome (blepharospasm with oromandibular dystonia): Comment: Meds tried: Baclofen, valium, trihexyphenidyl MRI brain WO at [facility] in February 2025: No sig change MRI brain WO at [facility] in January 2023: Mild non specific WM changes, small pineal cyst. 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 I would see her for follow-up in couple of months I discussed the plan to administer Botox for her right hemifacial spasm. We talked about the balance of injections, noting that too much medication can cause the face to look flat, and she acknowledged the sensation of the muscle paralysis fighting against the disease. Regarding her new complaint of sharp head pains, I explained that this is likely related to psychological stress causing muscle tension, which in turn irritates nerves. I reassured her that this symptom is not a sign of a serious underlying condition and is separate from her facial spasm. I recommended she schedule a follow-up appointment in about two months for a recheck and another in three months for her next Botox treatment. 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
--- OUTSIDE RECORDS SUMMARY | 2025-08-10 14:33 | XMS_ITS | Data Portability ---
Author Organization [facility], Telehealth Patient Home Address [address] [place] [address] Assessment Encounter Date Assessment Date Assessment LastModified by Organization Details LastModified Time 02/26/2023 02/26/2023 [id number] [place] [address] (ADMITTING COUNSELOR) : RYAN LOW MUST MEET 2 OF [...] COVERED Not available 02/26/2023 09:08:56 10/11/2023 10/11/2023 [address] [place] [address] (ADMITTING COUNSELOR) : RYAN LOW MUST MEET 2 OF [...] below. Not available 02/12/2025 12:10:32 03/15/2025 03/15/2025 [address] [place] [address] (ADMITTING COUNSELOR) MDM MODERATE MUST MEET 2 OUT OF [...] THAT IS COVERED Not available 03/15/2025 15:22:39 07/09/2025 07/09/2025 [address] [place] [address] (ADMITTING COUNSELOR) : MDM LOW MUST MEET 2 OF [...] ALL OF THE ELEMENTS COVERED Not available 07/09/2025 12:21:26 Plan of Treatment Reminders Order Date Submit Date Provider Last Modified By Organization Details Last Modified Time Details Appointments None recorded. Lab None recorded. Referral neurologis t referral 2024 025 ATHENAFAX Afia Marinelli MD, [address], [place], [address], 10:13:40 Procedures None recorded. Surgeries None recorded. Imaging MR, angiogram, head, w/o contrast 2024 025 [email or web address] 10 [facility] Scheduling, [address], [place], [address], 09:14:48 Medication Orders hyoscyamin e 0.125 mg sublingual tablet 2024 025 [place], [address] [place], [address], 5 15:26:30 sertraline 100 mg tablet 2024 025 [place] [facility], [address] [place], [address], 5 12:13:43 bupropion HCl SR 150 mg tablet,12 hr sustained- release 2024 025 [place] [facility], [address] [place], [address], 5 12:13:43 Valium 5 mg tablet 2022 023 [facility], [address] [place], [address], 5 12:12:06 Patient TargetsNo targets recorded. Patient Instructions Encounter Date Encounter Id Patient Instructions Last Modified By Organization Details Last Modified Time 03/15/2025 [id number] irritable bowel syndrome: care instructions Not available 03/15/2025 15:26:27 Reason for Referral Neurologist Referral for Judith ge syndrome Referring Physician: Baldomero Edwards, Internal Medicine, Encounter Date: 07/09/2025 Results Created Date Observation Date Name Description Value Unit Range Abnormal Flag Note LastModifiedBy Organization Detail LastModifiedTime 02/14/2002/0802/08/2023 MRI, brain , w/wo contr ast No observ ation record ed. [email or web address] [facility] (Medical Records) [address] [place], [address], 03/12/2023 13:52:46 02/19/20 25 02/18/2025 CT, abdom en + pelvi s, w/ contr ast No observ ation record ed. [email or web address] [facility] (Medical Records) [address] [place], [address], 02/18/2025 11:22:12 03/04/20 25 03/04/2025 MRI, head, w/o contr ast No observ ation record ed. [email or web address] (Medical Records) [address] [place], [address], 03/09/2025 22:08:02 Result Notes None recorded. Problems Name Problem SNOMED Code Status Onset Date Resolution Date Notes Provider Name and Address Organization Details Recorded Time Dysmenorr hea 143396075 Active 2018 [facility] Mau [address], [address], [facility] 9 10:48:19 Tobacco user 375957151 Active [address], [address], [facility] 9 10:48:24 Anxiety 80268792 Active 2018 Baldomero Edwards DO [address] [place] [address], [address], [facility] 5 17:00:46 Blepharos pasm of right eyelid 888284584576 47743 Active 2022 Baldomero Edwards DO [address] [place] [address], [address], [facility] 3 14:21:57 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 995618359468 19696 Active 2022 Baldomero Edwards, [address] [place] [address], [address], [facility] 3 09:07:45 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 Procedures Surgical History Date Name Laterality Status Provider Name and Address Organization Details Recorded Time 10/22/19 19 Date of Last Pap Smear completed November [address], [address], [facility] 10/22/2018 10:51:03 ligation of bilateral fallopian tubes completed Cesilia [address], [address], [facility] 10/22/2018 10:48:58 extraction of wisdom tooth completed [address], [address], [facility] 10/22/2018 10:49:08 Imaging Results None recorded. Procedure [...] TAKE ONE TABLET BY MOUTH EVERY DAY active Not Available Not Available No t Available prednisone 10 mg tablet 40 mg x [...] TAKE ONE TABLET BY MOUTH EVERY DAY - PT NEEDS TO MAKE APPOINTME NT active Not Available Not Available No t Available acetaminoph en 500 mg tablet TAKE ONE TABLET BY MOUTH EVERY 6 HOURS NEEDED 03/15 completed Not Available Not Available Not Available acetaminoph en ER 650 mg tablet,exte nded release TAKE ONE TABLET BY MOUTH EVERY 8 HOURS NEEDED FOR MILD PAIN FOR UP TO 10 DAYS. DO NOT CRUSH, CHEW OR SPLIT. 03/15 completed Not Available Not Available Not Available prednisolon e acetate 1 % eye drops,suspe nsion INSITLL ONE DROP INTO BOTH EYES FOUR TIMES A DAY. SHAKE BOTTLE BEFORE USE 07/09 completed Not Available Not Available Not Available [...] BY MOUTH TWICE A DAY WITH MEALS 05/10 /2023 completed Not Available Not Available Not Available ibuprofen 600 mg tablet TAKE ONE TABLET BY MOUTH EVERY 8 HOURS NEEDED FOR MILD TO MODERATE PAIN.FOR UP TO 10 DAYS 03/15 completed Not Available Not Available Not Available trihexyphen idyl 2 mg tablet TAKE ONE TABLET BY MOUTH THREE TIMES A DAY 07/09 completed Not Available Not Available Not Available ondansetron 4 mg disintegrat ing tablet DISSOLVE ONE TABLET BY MOUTH THREE TIMES A DAY NEEDED FOR NAUSEA OR VOMITING 07/09 completed Not Available Not Available Not Available diazepam 5 mg tablet TAKE TWO [...] completed Not Available Not Available Not Available Restasis 0.05 % eye drops in a dropperette INSITLL ONE DROP INTO BOTH EYES TWO TIMES A DAY active Not Available Not Available No t Available chlorhexidi ne gluconate 0.12 % mouthwash [...] (BMI) Body weight Heart rate Oxygen saturation Systolic And Diastolic Provider Name and Address Organization Details Last Updated DateTime 5 165.1 cm 25.8 kg/m2 89142.8 2 g 98 /min 88 % 128/78 mm[Hg] [facility] 5 11:56:43 Date Recorded Body height Body mass index (BMI) Body weight Oxygen saturation Heart rate Systolic And Diastolic Provider Name and Address Organization Details Last Updated DateTime 5 165.1 cm 20 kg/m2 26262.8 g 97 % 75 /min 134/82 mm[Hg] BROOKE BENITES [facility] 5 14:55:50 Date Recorded Body height Body mass index (BMI) Body weight Heart rate Oxygen saturation Systolic And Diastolic Provider Name and Address Organization Details Last Updated DateTime 5 165.1 cm 19.3 kg/m2 37920.7 1 g 71 /min 96 % 142/96 mm[Hg] Elizabeth Delacruz [facility] 5 11:39:22 Social History Question Answer Notes LastModified by Organizat ion Details LastModified Time Tobacco Smoking Status Current Every Day Smoker Not Available [email or web address] 06/21/2020 03:36:24 What Was The Date Of Your Most Recent Tobacco Screening? 07/09/2025 [email or web address] Information not available 07/09/2025 How Much Tobacco Do You Smoke? 0.5 PPD [email or web address] Information not available 03/15/2025 Sex: Unknown Functional Status Question Answer Note LastModified by Organization D etails LastModified Time Do you or have you ever used any other forms of tobacco or nicotine? No [email or web address] Information not available 12/26/2022 Mental Status None [...] toxoid, unspecified formulation 03/01/[address] [facility] 10/27/2018 16:45:59 Past Encounters Encounter ID Performer Location Encounter Start Date Encounter Closed Date Diagnosis/Indication Diagnosis SNOMED-CT Code Diagnosis ICD10 Code Diagnosis IMO Codes Diagnosis Note [id number] Baldomero Edwards DO [facility] [address] [facility],[place] [address] 10/28/2018 14:17:18 10/28/2018 14:33:04 Acute sinusitis 33332595 J01.90 Tobacco user 800769646 Z 72.0 Anxiety 85471850 F41.9 [id number] Baldomero Edwards DO [facility] [address] [place] [address] 11/10/2019 15:57:53 11/16/2019 16:41:18 Pneumonia 969228946 J18.9 Patient has been having constant dry cough, nasal congestion , post-nasal drip for the past two weeks She has a hx of smoking She is no longer having fevers and her other symptoms have been improving gradually She has not been exposed to anyone with COVID-19 and states she has kept herself self-quara ntined Patient most likely having asthma/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 exacerbati on in the setting of [...] and agrees to this plan Tobacco user 420200988 Z 72.0 as above [id number] DO [facility] [address] [place] [address] 12/01/2019 08:52:42 12/01/2019 09:43:57 Adult health examination 757421399 Z00.01 Active or passive immunization 512771244 Z23 Cellulitis 802313000 L03 .90 from contact dermatitis Contact dermatitis 38830 004 L25.9 Anxiety 20724349 F41.9 Depressive disorder 3548 9007 F32.9 Dysmenorrhea 641947194 N 94.6 [id number] DO [facility] [address] [place] [address] 06/28/2020 15:28:42 06/28/2020 16:02:25 Pain of right wrist 9641343216 55784 M25.531 need XRs will fu afterwards will use thumb spica brace in the meantime [id number] DO [facility] [address] [facility],[place] [address] 07/06/2020 13:50:20 07/06/2020 16:57:42 Pain of right wrist 8196044535 03123 M25.531 need XRs again will fu afterwards will go get new brace in meantime with order for proper fit [id number] [facility] [address] [facility],[place] [address] 08/02/2021 08:28:32 08/02/2021 14:56:40 Anxiety 33587330 F41.9 stable and is not having any issues [id number] [facility] [address] [facility],[place] [address] 12/26/2022 13:43:34 12/26/2022 14:38:46 Blepharospasm of right eyelid 2383483305 4618668 G24.5 [id number] 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 [id number] Baldomero Edwards 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 [address] [facility], [place] [address] 07/09/2025 11:33:01 07/09/2025 12:24:44 Depression screening 430534141 Z13.31 pos Anxiety 89367923 F41.9 93167 stable and is not having any issues Irritable bowel syndrome 98302356 K58.9 1263179 stable Meige syndrome 501943890 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 Blood pres sure above reference range 37398420 R03.0 707017 will check bp at home for a couple weeks Health Concerns Section Related Observation LastModified by Organization Detai ls LastModified Time None Recorded Concern Status LastModified by Organization Details LastModified Time None Recorded Advance Directives Directive None Recorded Payers Insurance Date Sequence Insurance Name Policy Number Policy Oreilly Covered Member ID Oreilly Member ID Guarantor Name 02/12/2025 1 [facility] [id number] Luz Renee [id number] Luz Duran 07/09/2025 1 [place] [facility] PL[facility] Luz Celeste Renee [id number] Luz M Renee Notes Date Note Type Note Provider Name and Address Organization Details Recorded Time 3 text/htm l ROS as noted in the HPI patient is evaluated via tele/video assessment per patient consentduring current pandemic still having a great deal of eye twitching on right eyelid extending down to corner of her mouth so much that she is talking diff because of itreviewed mri w pt which is neg Baldomero Edwards DO [address] [place] [address], [address], [facility] 02/26/2023 10:16:13 4 text/htm l ROS as noted in the HPI patient is evaluated via tele/video assessment per patient consentduring current pandemic 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 and relates that she is very scared and upset because it will get worsetold no cure and will progress Baldomero Edwards DO [address] [place], [address], [facility] 10/11/2023 17:06:28 5 text/htm l relates her symptoms are getting bad againhas a signif droop of right facial musclesspeech is getting affectedalso eyelid spasm is coming back also relates that she is getting stupid forgetting things, getting almost dyslexic forgetting numbers hard time seeing at night has appt with dr tamara Edwards DO [address] [place], [address], [facility] 02/12/2025 12:17:52 5 text/htm l ROS as noted in the HPI here for rechk and is doing about the same reviewed the MRI results and thankhfully has no evid of ds except for sm vssl ischemia Baldomero AhmetAlexander Edwards DO [address] [place], [address], [facility] 03/17/2025 08:43:23 5 text/htm l Bowel Complaints/Fecal IncontinenceReported by PatientHPIFor context, patient reportsno recent opiates,no recent surgery,normal toileting ability,no history of ibs,no history of colonoscopy,no history of diverticulosis, andno abnormal imaging. For associated symptoms, patient reportsno abdominal pain,no vaginal bulge or pressure,no excess gas,no bloating,no cramping,no nausea,no vomiting,no weight loss,no heartburn, andno blood in stool.ROS as noted in the HPI here for eugenia and is doing about the same reviewed the MRI results and thankhfully has no evid of ds except for sm vssl ischemia also noted to have some eleveated bps will have her follow this Baldomero Edwards DO [address] [place], [address], [facility] 07/09/2025 12:22:29 OBGyn Episode No OBEpisode recorded.
--- OUTSIDE RECORDS SUMMARY | 2025-08-10 14:33 | XMS_ITS | Encounter Summary ---
Author Organization [facility] Address [address] [place] [address] Phone Care Team Providers Care Manager Department Name Role Phone Baldomero Edwards DO Unavailable Fallon Adams NET UI DEVELOPER Unavailable [phone] Bisi Maldonado NET UI DEVELOPER Unavailable Jj Quinteros MD Unavailable [phone] Milly Carcamo NET UI DEVELOPER Unavailable Mauricio Hahn MD Unavailable Baldomero Edwards DO Primary Care Provider [phone] Encounter Details Date Type Department Care Team (Latest Contact Info) Description 07/06/2020 Transcribe Orders Virtual Department 30 [place] [address] Senait Tim PA [address] [place] [address] [place] [address] Right wrist pain (Primary Dx) Social History [...] PM EST No significant bony abnormality. POS [id number] Narrative 07/06/2020 4:15 PM EST Frontal, lateral, [...] apparent. IMPRESSION: No significant bony abnormality. POS [id number] Senait VALENCIA IMG XR UPPER EXTREMITY Anika l Result documented in this encounter Visit Diagnoses Diagnosis Right wrist pain- Primary Pain in joint, forearm Right wrist pain Pain in joint, forearm documented in this encounter Care Teams Manager Department Relationship Specialty Start Date End Date Baldomero Edwards DO 22 [facility] [address] [place] [address] PCP - General 08/22/17 Baldomero Edwards DO 179 [place] [address] Historical LMR Provider 06/03/17 08/26/21 Fallon Adams NP [address] [place] [address] [email or web address] Historical LMR Provider 06/03/17 Bisi Maldonado NP 21 [place] [address] [email or web address] Historical LMR Provider 06/03/17 2 Jj Quinteros MD [address] [address] Historical LMR Provider 06/03/17 08/26/21 Milly Carcamo NP [address] [place] [address] Historical LMR Provider 06/03/17 2 Mauricio Hahn MD [address] [address] [email or web address] Historical LMR Provider 06/03/17 08/26/21 documented as of this encounter Additional Source Comments The information contained in this document represents components of the legal health record. It is not the complete legal health record.[facility]
--- OUTSIDE RECORDS SUMMARY | 2025-08-10 14:33 | XMS_ITS | Clinical Summary ---
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 Wants to avoid possible weight gain on [...] DENSITY: There are scattered fibroglandular densities. POS [id number] Narrative 11/11/2018 1:33 PM EDT Bilateral full-field [...] DENSITY: There are scattered fibroglandular densities. POS [id number] Fallon Adams PATTERN DATA OPERATOR IMG MG EXAMS Final Result * Pap Smear (10/21/2018 12:00 AM EST) 10/21/2018 10/22/2018 10: 57 AM EST Narrative SEE NARRATIVE - 10/28/2018 3:53 [place] [address] Facing Grinder: Taina Ibarra MD MANUFACTURING ASSOCIATE Cytology Report FINAL DIAGNOSIS A. PAP SMEAR [...] 52, 56, 58, 59, 66, 68) by [employer] HR-HPV analysis. Clinical correlation is advised. This HPV test was performed at [facility], [address] [place] [address]. This test has been FDA approved for SurePath cervical cytology specimens. The accuracy and precision of this test for all other specimen sources has been verified in the Cytopathology Laboratory of the [facility] and has not been cleared or approved by the U.S. Food and Drug Administration. Clinical correlation is advised. CLINICAL HISTORY Date of Last Menstrual Period: 10/13/2018 Other Clinical Conditions: Screening Pap SPECIMEN SOURCE A: PAP SMEAR (SUREPATH) CE Patient Name: ANAID JOHNSON : 1975 (Age: 43) Sex: F Institution: [facility] Location: [facility] Date of Collection: 10/21/2018 Date of Reported: 10/28/2018 15:53 Results to: Fallon Adams MSN, BS Fallon Adams PATTERN DATA OPERATOR CYTOLOGY ORDERABLES Final Resu lt SEE NARRATIVE from Last 3 Months or Most Recently Relevant to Health Maintenance Insurance [facility] NON NSPG PCP [employer] [facility] NON NSPG PCP [employer] Member Subscriber Plan / Payer (Ef fective 2017-Present) Name:Anaid Johnson Relation to Subscriber:Self Name:Anaid Johnson Payer ID:[id number] Type:O Address: [address] [place] [address] [employer] NON NSPG PCP [employer] Member Subscriber Plan / Payer (Ef fective 2017-Present) Name:Anaid Johnson Relation to Subscriber:Self Name:Anaid Johnson Payer ID:[id number] Type:O Address: [address] [place] [address] [facility] NON NSPG PCP [employer] Member Subscriber Plan / Payer (Ef fective 2017-Present) Name:Anaid Johnson Relation to Subscriber:Self Name:Anaid Johnson Payer ID:[id number] Type:O Address: [address] [place] [address] [facility] NON NSPG PCP [employer] NON NSPG PCP [employer] Member Subscriber Plan / Payer (Ef fective 2017-Present) Name:Anaid Johnson Relation to Subscriber:Self Name:Anaid Johnson Payer ID:[id number] Type:O Address: [address] [place] [address] [employer] NON NSPG PCP [employer] NON NSPG PCP S[employer] [address] NON NSPG PCP [employer] Care Teams Fire Technology Instructor Relationship Specialty Start Date End Date Baldomero Edwards DO 30 [place] [address] [email or web address] PCP - General 08/22/17 Fallon Adams NP 30 [place] [address] [email or web address] Historical LMR Provider 06/03/17 Additional Source Comments The information contained in this document represents components of the legal health record. It is not the complete legal health record.[facility]
--- OUTSIDE RECORDS SUMMARY | 2025-08-10 14:33 | XMS_ITS | Encounter Summary ---
Author Organization [facility] Address [address] [place] [address] Phone Care Team Providers Care Gray Mixing Operator Name Role Phone Baldomero Edwards DO Unavailable Fallon Adams KEY ACCOUNT DIRECTOR Unavailable [phone] Bisi Maldonado KEY ACCOUNT DIRECTOR Unavailable Jj Quinteros MD Unavailable [phone] Milly Carcamo KEY ACCOUNT DIRECTOR Unavailable Mauricio Hahn MD Unavailable [phone] Baldomero Edwards DO Primary Care Provider [phone] Encounter Details Date Type Department Care Team (Late st Contact Info) Description 06/28/2020 Ancillary Orders Virtual Department 30 [place] [address] Senait Tim PA [address] [place] [address] [place] [address] Pain in right wrist Social History Tobacco [...] forearm documented in this encounter Care Teams Gray Mixing Operator Relationship Specialty Start Date End Date Baldomero Edwards DO [address] [address] PCP - General 08/22/17 Baldomero Edwards DO 179 [facility] [place] [address] [email or web address] Historical LMR Provider 06/03/17 08/26/21 Fallon Adams NP 30 [place] [address] [email or web address] Historical LMR Provider 06/03/17 Bisi Maldonado NP [address] [place] [address] [email or web address] Historical LMR Provider 06/03/17 2 Jj Quinteros MD 22 [facility] [place] [address] Historical LMR Provider 06/03/17 08/26/21 Milly Carcamo NP [address] [place] [address] Historical LMR Provider 06/03/17 2 Mauricio Hahn MD 22 [facility], [facility] 102 [place] [address] Historical LMR Provider 06/03/17 08/26/21 documented as of this encounter Additional Source Comments The information contained in this document represents components of the legal health record. It is not the complete legal health record.[facility]
--- OUTSIDE RECORDS SUMMARY | 2025-08-10 14:33 | XMS_ITS | Encounter Summary ---
Author Organization [facility] Address [address] [place] [address] Phone Care Team Providers Care Vp Software Support Name Role Phone Baldomero Edwards DO Unavailable Fallon Adams MANAGER FINANCIAL REPORTING Unavailable [phone] Bisi Maldonado MANAGER FINANCIAL REPORTING Unavailable [phone] Jj Quinteros MD Unavailable [phone] Milly Carcamo MANAGER FINANCIAL REPORTING Unavailable Mauricio Hahn MD Unavailable [phone] Baldomero Edwards DO Primary Care Provider [phone] Encounter Details Date Type Department Care Team (Late st Contact Info) Description 09/27/2017 Ancillary Orders Virtual Department 30 [place] [address] Baldomero Edwards DO 179 [facility] [place] [address] [email or web address] Lumbar disc herniation; Radiculopathy, unspecified spinal region; [...] fatigue documented in this encounter Care Teams Vp Software Support Relationship Specialty Start Date End Date Baldomero EdwardsDO [address] [address] PCP - General 08/22/17 Jerry Baldomero DO Johnathan 179 [facility] [address] Historical LMR Provider 06/03/17 08/26/21 Fallon Adams NP [address] [place] [address] Historical LMR Provider 06/03/17 Bisi Maldonado NP 21 [place] [address] [email or web address] Historical LMR Provider 06/03/17 2 Jj Quinteros MD 22 [facility], 2nd [place] [address] Historical LMR Provider 06/03/17 08/26/21 Milly Carcamo NP [address] [place] [address] Historical LMR Provider 06/03/17 2 Mauricio Hahn MD [address] [address] (work) [email or web address] Historical LMR Provider 06/03/17 08/26/21 documented as of this encounter Additional Source Comments The information contained in this document represents components of the legal health record. It is not the complete legal health record.[facility]
--- OUTSIDE RECORDS SUMMARY | 2025-08-10 14:33 | XMS_ITS | Encounter Summary ---
Author Organization [facility] Address [address] [place] [address] [place] [address] Phone Care Team Providers Care Statistical Financial Analyst Name Role Phone Fallon Adams Khalif TIRE RETREADER Unavailable [phone] Baldomero Edwards DO Primary Care Provider [phone] Encounter Details Date Type Department Care Team (Late st Contact Info) Description 06/10/2024 Procedure Pass [facility] - MRI, [facility] [address] [place] [address] Social History Tobacco Use Types Packs/Day Years [...] on filedocumented in this encounter Care Teams Statistical Financial Analyst Relationship Specialty Start Date End Date Baldomero Edwards DO 30 [place] [address] [email or web address] PCP - General 08/22/17 Fallon Adams NP 30 [place] [address] [email or web address] Historical LMR Provider 06/03/17 documented as of this encounter Additional Source Comments The information contained in this document represents components of the legal health record. It is not the complete legal health record.[facility]
--- OUTSIDE RECORDS SUMMARY | 2025-08-10 14:33 | XMS_ITS | Encounter Summary ---
Author Organization [facility] Address [address] [place] [address] Phone Care Team Providers Care Agronomy Location Manager Name Role Phone Baldomero Edwards DO Unavailable Fallon Adams SPECIAL WARFARE OPERATOR Unavailable [phone] Bisi Maldonado SPECIAL WARFARE OPERATOR Unavailable [phone] Jj Quinteros MD Unavailable [phone] Milly Carcamo SPECIAL WARFARE OPERATOR Unavailable Mauricio Hahn MD Unavailable [phone] Baldomero Edwards DO Primary Care Provider [phone] Encounter Details Date Type Department Care Team (Late st Contact Info) Description 09/27/2017 Procedure Pass [address] [address] Social History Tobacco Use Types Packs/Day Years [...] on filedocumented in this encounter Care Teams Agronomy Location Manager Relationship Specialty Start Date End Date Baldomero Edwards DO [address] [address] PCP - General 08/22/17 Baldomero Edwards DO [address] [place] [address] [place] [address] Historical LMR Provider 06/03/17 08/26/21 Fallon Adams SPECIAL WARFARE OPERATOR [address] [place] [address] Historical LMR Provider 06/03/17 Bisi Maldonado SPECIAL WARFARE OPERATOR 21 [place] [address] [email or web address] Historical LMR Provider 06/03/17 2 Jj Quinteros MD 22 [facility], 2nd [place] [address] Historical LMR Provider 06/03/17 08/26/21 Milly Carcamo NP [address] [place] [address] Historical LMR Provider 06/03/17 2 Mauricio Hahn MD [address] [address] Historical LMR Provider 06/03/17 08/26/21 documented as of this encounter Additional Source Comments The information contained in this document represents components of the legal health record. It is not the complete legal health record.[facility]
--- OUTSIDE RECORDS SUMMARY | 2025-08-10 14:33 | XMS_ITS | Clinical Summary ---
Author Organization [employer] Address [address] [place] [address] Care Team Providers Care Master Rigger Name Role Phone Unavailable Primary Care Provider [...] Screening 05/08/2024 05/08/2023 COVID-19 Vaccine (1 - 2024-2 6 season) 2025 Influenza Vaccine (#1) 2025 Zoster [...]
--- OUTSIDE RECORDS SUMMARY | 2025-08-10 14:33 | XMS_ITS | Continuity of Care Document ---
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 Referral neurologis t referral 2024 025 JOHANNAENAFAX Afia Marinelli MD, [address], [place], [address], 5 10:13:40 Procedures None recorded. Surgeries None recorded. Imaging None recorded. Medication Orders None recorded. Patient TargetsNo targets recorded. Patient InstructionsNo instructions recorded. Reason for Referral Neurologist Referral for Judith ge syndrome Referring Physician: Baldomero Edwards, Internal Medicine, Encounter Date: 07/09/2025 Problems Name Problem SNOMED Code Status Onset Date Resolution Date Notes Provider Name and Address Organization Details Recorded Time Dysmenorr hea 512546995 Active 2018 WANDER LeónCARL [address] [place] [address], [address], [facility] 9 10:48:19 Tobacco user 798690348 Active 2018 WANDER LeónCARL [address] [place] [address], [address], [facility] 9 10:48:24 Anxiety 71400892 Active 2018 Baldomero Edwards DO [address] [place] [address], [address], [facility] 5 17:00:46 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 Baldomero Edwards DO [address] [place] [address], [address], [facility] 3 14:21:57 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 931407366080 78[address] Active 2022 Baldomero Edwards DO [address] [place] [address], [address], [facility] 3 09:07:45 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 Procedures Surgical History Date Name Laterality Status Provider Name and Address Organization Details Recorded Time 10/22/19 19 Date of Last Pap Smear completed November [facility] [address], [address], [facility] 10/22/2018 10:51:03 ligation of bilateral fallopian tubes completed November [address], [address], [facility] 10/22/2018 10:48:58 extraction of wisdom tooth completed November [address], [address], [facility] 10/22/2018 10:49:08 Imaging Results None [...] Updated DateTime 5 165.1 cm 19.3 kg/m2 12392.7 1 g 71 /min 96 % 142/96 mm[Hg] [facility] 5 11:39:22 Social History Question Answer Notes LastModified by Organizat ion Details LastModified Time Tobacco Smoking Status Current Every Day [facility]oker Not [facility] 06/21/2020 03:36:24 What Was The Date Of Your Most Recent Tobacco Screening? 07/09/2025 [email or web address] Information not available 07/09/2025 How Much Tobacco Do You Smoke? 0.5 PPD [email or web address] Information not available 03/15/2025 Sex: Unknown Functional Status Question Answer Note LastModified by Organization D etails LastModified Time Do you or have you ever used any other forms of tobacco or nicotine? No [email or web address] Information not available 12/26/2022 Mental Status None [...] toxoid, unspecified formulation 03/01/2017 completed Elida ornelas [facility] 10/27/2018 16:45:59 Past Encounters Encounter ID Performer Location Encounter Start Date Encounter Closed Date Diagnosis/Indication Diagnosis SNOMED-CT Code Diagnosis ICD10 Code Diagnosis IMO Codes Diagnosis Note [id number] Baldomero Edwards DO [facility] [address] [facility] [address] 07/09/2025 11:33:01 07/09/2025 12:24:44 Depression screening 328465693 Z13.31 pos Anxiety 94415389 F41.9 [address] stable and is not having any issues Irritable bowel syndrome 27726950 K58.9 3223177 stable 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 Blood pres sure above reference range 77110457 R03.0 972255 will check bp at home for a couple weeks Health Concerns Section Related Observation LastModified by Organization Detai ls LastModified Time None Recorded Concern Status LastModified by Organization Details LastModified Time None Recorded Payers Encounter Date Sequence Insurance Name Policy Number Policy Oreilly Covered Member ID Oreilly Member ID Guarantor Name 07/09/2025 1 [place] [facility] Luz Duran [id number] Luz Duran Notes Date Note Type Note Provider Name and Address Organization Details Recorded Time 5 text/htm l Bowel Complaints/Fecal IncontinenceReported by [...] her follow this Baldomero Edwards DO 179 [place], [address], [facility] 07/09/2025 12:22:29 OBGyn Episode No OBEpisode recorded.
--- OUTSIDE RECORDS SUMMARY | 2025-08-10 14:34 | XMS_ITS | Encounter Summary ---
Author Organization [facility] Address [address] [place] [address] Phone Care Team Providers Care Insurance Adjuster Name Role Phone Baldomero Edwards DO Unavailable Fallon Adams STATIONARY ENGINEER Unavailable [phone] Bisi Maldonado STATIONARY ENGINEER Unavailable Jj Quinteros MD Unavailable [phone] Milly Carcamo STATIONARY ENGINEER Unavailable Mauricio Hahn MD Unavailable [phone] Baldomero Edwards DO Primary Care Provider [phone] Encounter Details Date Type Department Care Team (Late st Contact Info) Description 09/27/2017 Ancillary Orders Virtual Department 30 [place] [address] Baldomero Edwards DO 179 [facility] [place] [address] Degenerative lumbar disc; Weakness Social History Tobacco [...] paramedian annular tear since 2010. POS - [id number] Narrative 10/08/2017 3:13 PM EST TECHNIQUE: Exam [...] paramedian annular tear since 2010. POS - [id number] us Baldomero ALSTONG MR XSPECIALTY Final Result documented in this encounter Visit Diagnoses Diagnosis Degenerative lumbar disc Weakness Other malaise and fatigue Degenerative lumbar disc Weakness Other malaise and fatigue documented in this encounter Care Teams Insurance Adjuster Relationship Specialty Start Date End Date Baldomero Edwards DO [address] [address] PCP - General 08/22/17 Baldomero Edwards DO 179 [facility] [place] [address] Historical LMR Provider 06/03/17 08/26/21 Fallon Adams STATIONARY ENGINEER [address] [place] [address] [email or web address] Historical LMR Provider 06/03/17 Bisi Maldonado NP 21 [place] [address] [email or web address] Historical LMR Provider 06/03/17 2 Jj Quinteros MD 22 [facility] 2[address] [place] [address] Historical LMR Provider 06/03/17 08/26/21 Milly Carcamo NP [address] [place] [address] Historical LMR Provider 06/03/17 2 Mauricio Hahn MD [address] [address] [email or web address] Historical LMR Provider 06/03/17 08/26/21 documented as of this encounter Additional Source Comments The information contained in this document represents components of the legal health record. It is not the complete legal health record.[facility]
== END 2025-08-10 14:05 | disposition home or self-care (01) ==
PROVIDERS: PCP Internal Medicine; Visit Provider Psychiatry & Neurology Neurology
DX: G24.4 Idiopathic orofacial dystonia (principal)
CPT/HCPCS: 64612

== ENCOUNTER → 2025-08-10 13:23 | Outpatient (BNVA) | payer MEDICAID, SELFPAY | PROVIDERS: PCP Internal Medicine; Visit Provider Psychiatry & Neurology Neurology | DX: G24.4 Idiopathic orofacial dystonia (principal) | CPT/HCPCS: 64612; J0585 ==